=== PATIENT | female | born 1955 | race African-American/Black ===

== ENCOUNTER 2019-11-29 13:14 | Inpatient (IN) | payer MEDICARE, OTHER ==
[~2019-11-29] VITALS: Ht 165.1 cm; Wt 68.5 kg
[~2019-11-29 13:14] MED LIST: CEPH500 PO; CYCL10 PO; ESCI20TA PO; HYDR-3965 PO; HYDR12.530 PO; HYDR4TAB56 PO; INSLAN SQ; LISI-662 PO; LORA-999 PO; METO5TAB95 PO; MIRT15TA6 PO; OXCA300T29 PO; TRAM50TA4 PO
[2019-11-29] MEDS ORDERED: NiCARDipine HCL 25 MG in DEXTROSE 5%-WATER 240 ML IV PRN (13:19)
[2019-11-29 13:53] LABS: BASOPHILS % (AUTO) 0.6 % (0.0-2.0); EOSINOPHILS % (AUTO) 0 % (1.0-6.0); HEMATOCRIT 33.9 % (36-46); LYMPHOCYTES # (AUTO) 0.9 K/uL (1.0-4.8); LYMPHOCYTES % (AUTO) 11.1 % (22.0-44.0); MEAN CORPUSCULAR HEMOGLOBIN 25.9 pg (26.0-34.0); MEAN CORPUSCULAR HGB CONC 32.4 G/dL (31.0-37.0); MEAN CORPUSCULAR VOLUME 80 fL (80-100); MONOCYTES # (AUTO) 0.4 K/uL (0.1-1.0); MONOCYTES % (AUTO) 5.5 % (2.0-9.0); NEUTROPHILS # (AUTO) 6.7 K/uL (1.8-7.7); NEUTROPHILS % (AUTO) 82.8 % (40.0-70.0); PLATELET COUNT (AUTO) 289 K/uL (150-450); RED BLOOD CELL COUNT(AUTO) 4.24 MIL/uL (4.00-5.20); RED CELL DISTRIBUTION WIDTH 14.7 % (11.5-14.5)
[2019-11-29] MEDS ORDERED: ASPIRIN 300 MG RECTAL SUPPOSITORY PR ONE (14:00)
[2019-11-29 14:08] LABS: ANION GAP 14 mmol/L (8-16); CARBON DIOXIDE 26 mmol/L (22-29); CHLORIDE 98 mmol/L (98-107); CREATININE 1.09 mg/dL (0.60-1.30); GLOMERULAR FILTR. RATE CALC > 60 mL/min (>60); GLUCOSE,RANDOM 357 mg/dL (70-110); POTASSIUM 3.3 mmol/L (3.5-5.1); SODIUM SERUM 138 mmol/L (136-145); UREA NITROGEN, BLOOD 16 mg/dL (7-18)
[2019-11-29 14:15] LABS: ALANINE AMINOTRANSFERASE 40 U/L (12-78); ALBUMIN 2.5 g/dL (3.4-5.0); ALKALINE PHOSPHATASE 100 U/L (46-116); ASPARTATE AMINOTRANSFERASE 35 U/L (15-37); BILIRUBIN,TOTAL 0.8 mg/dL (0.1-1.0); TOTAL PROTEIN, SERUM 7.3 g/dL (6.4-8.2)
[2019-11-29 14:19] LABS: LACTIC ACID 2.1 mmol/L (0.4-2.0)
[2019-11-29] MEDS ORDERED: SODIUM CHLORIDE 0.9% 1,600 ML IV ONE (14:28)
[2019-11-29] MEDS ORDERED: CefTRIAXone 1 GM/DEXTROSE 50 ML IV ONE (14:30)
[2019-11-29] MEDS ORDERED: ACETAMINOPHEN 1000 MG/ISO-OSM 100 ML IV ONE (14:30)
[2019-11-29 14:57] LABS: ERYTHROCYTE SEDIMENTATION RATE 66 MM/HR (0-20)
[2019-11-29 15:12] LABS: GLUCOSE,POINT OF CARE 315 MG/DL (70-110)
[2019-11-29] MEDS ORDERED: MAGNESIUM HYDROXIDE SUSPENSION 30 ML UDCUP PO PRN (15:15)
[2019-11-29] MEDS ORDERED: POTASSIUM CHLORIDE 20 MEQ ER TABLET PO PRN (15:15)
[2019-11-29 15:29] LABS: APPEARANCE,URINE CLEAR (CLEAR); BILIRUBIN,URINE NEGATIVE (NEGATIVE); GLUCOSE, URINE (UA) >=1000 mg/dL (NEGATIVE); KETONES,URINE >=80 mg/dL (NEGATIVE); LEUKOCYTE ESTERASE ,URINE NEGATIVE (NEGATIVE); NITRATE,URINE NEGATIVE (NEGATIVE); OCCULT BLOOD,URINE MODERATE (NEGATIVE); PROTEIN,URINE SEE CONFIRM (NEGATIVE); UROBILINOGEN,URINE 0.2 mg/dL (<=1.0)
[2019-11-29] MEDS ORDERED: PIPERACILLIN/TAZO 3.375 GM/D5W 50 ML IV ONE (15:30)
[2019-11-29 15:33] LABS: AMPHET/METH SCREEN,URINE NEGATIVE (NEGATIVE); BARBITURATE SCREEN, URINE NEGATIVE (NEGATIVE); BENZODIAZEPINES SCREEN,URINE NEGATIVE (NEGATIVE); CANNABINOID SCREEN,URINE NEGATIVE (NEGATIVE); COCAINE SCREEN,URINE NEGATIVE (NEGATIVE); METHADONE SCREEN, URINE NEGATIVE (NEGATIVE); OPIATE SCREEN,URINE POSITIVE (NEGATIVE)
[2019-11-29 15:37] LABS: PHENCYCLIDINE SCREEN,URINE NEGATIVE (NEGATIVE); SULFOSALICYLIC ACID,URINE 4+ (Negative)
[2019-11-29 15:38] LABS: WBC,URINE 0-2 /HPF (0-5)
[2019-11-29 15:39] LABS: AMORPHOUS SEDIMENT,UR Few /LPF (None Seen); BACTERIA,URINE None Seen /HPF (None Seen); RENAL EPITHELIAL CELLS,URINE Rare /LPF (None Seen); SQUAMOUS EPITHELIAL CELL,UR Rare /LPF (None Seen)
[2019-11-29] MEDS ORDERED: VANCOMYCIN HCL 1 GM/D5% WATER 200 ML IV ONE (15:45)
[2019-11-29] MEDS: POTASSIUM CHL 10 MEQ/WATER 50 ML IV PRN ×5 (16:11→23:49)
[2019-11-29 16:34] LABS: GLUCOSE,POINT OF CARE 314 MG/DL (70-110)
[2019-11-29] MEDS ORDERED: LORazepam 2 MG/ML VIAL IVP ONE (17:00)
[2019-11-29 19:49] LABS: GLUCOSE,POINT OF CARE 324 MG/DL (70-110)
[2019-11-29] MEDS: ACETAMINOPHEN 650 MG RECTAL SUPPOSITORY PR PRN (20:15)
[2019-11-29] MEDS: INSULIN LISPRO 100 UNITS/ML SQ PRN (20:50)
[2019-11-29] MEDS: HEPARIN SODIUM,PORCINE 5,000 UNITS/ML VIAL SQ SCH (20:54)
[2019-11-29] MEDS: DOCUSATE SODIUM 100 MG CAPSULE PO SCH (21:00)
[2019-11-29 22:00] VITALS: BP 135/71
[2019-11-29] MEDS ORDERED: SODIUM CHLORIDE 0.9% 250 ML IV ONE (22:02)
[2019-11-30] VITALS (8 sets, daily range): BP systolic 106–181; BP diastolic 43–102
[2019-11-30] MEDS ORDERED: SODIUM CHLORIDE 0.9% 250 ML IV ONE ×2 (00:31→14:10)
[2019-11-30] MEDS: PIPERACILLIN/TAZO 3.375 GM/D5W 50 ML IV SCH ×4 (00:32→18:27)
[2019-11-30] MEDS: POTASSIUM CHL 10 MEQ/WATER 50 ML IV PRN ×6 (01:01→22:39)
[2019-11-30] MEDS ORDERED: PNEUMOCOCCAL VACCINE POLYVALENT 0.5 ML VIAL [PPSV23] IM ONE (01:30)
[2019-11-30] MEDS ORDERED: INFLUENZA VIRUS VACCINE QVS 2019-20 (3YR+)/PF 60 MCG/0.5 ML SYRINGE IM ONE (01:30)
[2019-11-30 05:12] LABS: CALCIUM, TOTAL 8.9 mg/dL (8.8-10.5); CREATININE 1.23 mg/dL (0.60-1.30); POTASSIUM 3.2 mmol/L (3.5-5.1)
[2019-11-30] MEDS: INSULIN LISPRO 100 UNITS/ML SQ PRN ×3 (05:49→21:01)
[2019-11-30] MEDS: VANCOMYCIN HCL 750 MG in DEXTROSE 5%-WATER 250 ML IV SCH ×2 (07:47→19:40)
[2019-11-30] MEDS: DOCUSATE SODIUM 100 MG CAPSULE PO SCH ×2 (08:10→21:00)
[2019-11-30] MEDS: FAMOTIDINE 20 MG TABLET PO SCH (08:13)
[2019-11-30] MEDS: HEPARIN SODIUM,PORCINE 5,000 UNITS/ML VIAL SQ SCH ×2 (08:14→20:59)
[2019-11-30] MEDS: HydrALAZINE HCL 20 MG/ML VIAL IVP PRN ×2 (11:43→21:00)
[2019-11-30 17:34] LABS: GLUCOSE,POINT OF CARE 239 MG/DL (70-110)
[2019-11-30] MEDS: INSULIN GLARGINE,HUM.REC.ANLOG 100 UNITS/ML SQ SCH (21:05)
[2019-11-30] MEDS: ACETAMINOPHEN 650 MG RECTAL SUPPOSITORY PR PRN (21:06)
[2019-11-30] MEDS: MORPHINE SULFATE 2 MG/ML SYRINGE IVP PRN (21:30)
[2019-11-30 21:58] LABS: GLUCOSE,POINT OF CARE 233 MG/DL (70-110)
[2019-12-01] VITALS: BP 149/69
[2019-12-01] MEDS: PIPERACILLIN/TAZO 3.375 GM/D5W 50 ML IV SCH ×2 (00:04→05:18)
[2019-12-01] MEDS: POTASSIUM CHL 10 MEQ/WATER 50 ML IV PRN ×3 (00:04→10:44)
[2019-12-01 04:00] VITALS: BP 138/72
[2019-12-01] MEDS: LORazepam 2 MG/ML VIAL IVP PRN (04:00)
[2019-12-01 05:24] LABS: CALCIUM, TOTAL 9.1 mg/dL (8.8-10.5); CREATININE 1.48 mg/dL (0.60-1.30); POTASSIUM 3.1 mmol/L (3.5-5.1); VANCOMYCIN,RANDOM 21.4 mcg/mL (25.0-50.0)
[2019-12-01] MEDS: VANCOMYCIN HCL 750 MG in DEXTROSE 5%-WATER 250 ML IV SCH (06:22)
[2019-12-01] MEDS: INSULIN LISPRO 100 UNITS/ML SQ PRN (06:22)
[2019-12-01 06:33] LABS: GLUCOSE,POINT OF CARE 215 MG/DL (70-110)
[2019-12-01] MEDS ORDERED: LORazepam 2 MG/ML VIAL IVP PRN (07:15)
[2019-12-01] MEDS ORDERED: SODIUM CHLORIDE 0.9% 1,000 ML IV ONE (07:15)
[2019-12-01] MEDS ORDERED: LevETIRAcetam 500 MG in DEXTROSE 5%-WATER 100 ML IV ONE ×2 (07:15→10:45)
[2019-12-01] MEDS ORDERED: POTASSIUM CHL 10 MEQ/WATER 50 ML IV SCH (07:15)
[2019-12-01 07:34] LABS: GLUCOSE,POINT OF CARE 235 MG/DL (70-110)
[2019-12-01] MEDS: FAMOTIDINE 20 MG TABLET PO SCH (09:00)
[2019-12-01] MEDS: LISINOPRIL 20 MG TABLET PO SCH (09:00)
[2019-12-01] MEDS: DOCUSATE SODIUM 100 MG CAPSULE PO SCH ×2 (09:00→20:17)
[2019-12-01] MEDS: HEPARIN SODIUM,PORCINE 5,000 UNITS/ML VIAL SQ SCH ×2 (09:00→20:16)
[2019-12-01] MEDS ORDERED: PHENYTOIN SODIUM 1,000 MG in SODIUM CHLORIDE 0.9% 150 ML IV PRN (12:00)
[2019-12-01] MEDS: PIPERACILLIN SODIUM/TAZOBACTAM 2.25 GM in DEXTROSE 5%-WATER 50 ML IV SCH ×2 (12:31→18:58)
[2019-12-01] MEDS ORDERED: NOREPINEPHRINE 4 MG/D5%-WATER 250 ML IV ONE (14:13)
[2019-12-01] MEDS ORDERED: NOREPINEPHRINE 4 MG/D5%-WATER 250 ML IV PRN (14:28)
[2019-12-01] MEDS: PROPOFOL 1000 MG/ISO-OSM 100 ML IV PRN (14:55)
[2019-12-01 15:51] LABS: GLUCOSE,POINT OF CARE 137 MG/DL (70-110)
[2019-12-01 16:00] VITALS: BP 105/66
[2019-12-01 17:40] LABS: ABG BASE EXCESS -5.5 mmol/L (-2.0-3.0); ABG CARBOXYHEMOGLOBIN 0.3 % (0.0-1.5); ABG HCO3 20.7 mmol/L (22.0-26.0); ABG METHEMOGLOBIN 0.3 % (0.0-1.5); ABG OXYGEN CONTENT 14.9 mL/dL (15.0-23.0); ABG OXYGEN SATURATION 99.3 % (95.0-98.0); ABG OXYHEMOGLOBIN 98.7 % (94.0-100.0); ABG PCO2 30 mmHg (35-45); ABG PH 7.423 (7.35-7.450); ABG TOTAL HEMOGLOBIN 9.7 G/dL (12.0-18.0); SOURCE, BLOOD GAS ARTERIAL; TEMPERATURE, FAHRENHEIT, BG 99.5 FAHREN (96.0-98.6)
[2019-12-01 17:41] LABS: O2 DEVICE,BLOOD GAS VENTILATOR (ROOM AIR); PEEP,BG 5 cm H2O; SITE, BLOOD GAS LFT RADIAL; VT, ABG 450 ml
[2019-12-01 18:14] LABS: CALCIUM, TOTAL 8.4 mg/dL (8.8-10.5); CREATININE 1.53 mg/dL (0.60-1.30); MAGNESIUM 1.9 mg/dL (1.80-2.40); PHOSPHORUS 2.8 mg/dL (2.5-4.9); POTASSIUM 3.3 mmol/L (3.5-5.1)
[2019-12-01] MEDS ORDERED: ATROPINE SULFATE 0.1 MG/ML 10 ML SYRINGE IVP ONE (18:20)
[2019-12-01] MEDS: LevETIRAcetam 1,000 MG in DEXTROSE 5%-WATER 100 ML IV SCH (18:59)
[2019-12-01 20:00] VITALS: BP 126/74
[2019-12-01] MEDS ORDERED: SODIUM CHLORIDE 0.9% 1,000 ML IV SCH (20:00)
[2019-12-01] MEDS: SODIUM CHLORIDE 0.45% 1,000 ML IV SCH (20:16)
[2019-12-01] MEDS: VANCOMYCIN HCL 500 MG in DEXTROSE 5%-WATER 100 ML IV SCH (20:16)
[2019-12-01 20:34] LABS: APPEARANCE,URINE TURBID (CLEAR); BILIRUBIN,URINE PRELIM. POSITIVE (NEGATIVE); GLUCOSE, URINE (UA) 250 mg/dL (NEGATIVE); KETONES,URINE TRACE mg/dL (NEGATIVE); LEUKOCYTE ESTERASE ,URINE NEGATIVE (NEGATIVE); NITRATE,URINE NEGATIVE (NEGATIVE); OCCULT BLOOD,URINE LARGE (NEGATIVE); PROTEIN,URINE SEE CONFIRM (NEGATIVE); UROBILINOGEN,URINE 0.2 mg/dL (<=1.0)
[2019-12-01 20:35] LABS: CREATININE,URINE RANDOM 250.4 mg/dL (30.0-125.0); SODIUM,URINE RANDOM 14 mmol/l (20-110); UREA NITROGEN,URINE RANDOM 506 mg/dL (350-1000)
[2019-12-01 20:49] LABS: SULFOSALICYLIC ACID,URINE 4+ (Negative)
[2019-12-01 20:51] LABS: WBC,URINE 0-2 /HPF (0-5)
[2019-12-01 20:52] LABS: BACTERIA,URINE Many /HPF (None Seen)
[2019-12-01 20:53] LABS: SQUAMOUS EPITHELIAL CELL,UR Few /LPF (None Seen); URIC ACID CRYSTALS,URINE Many /LPF (None Seen)
[2019-12-01 21:49] LABS: GLUCOSE,POINT OF CARE 126 MG/DL (70-110)
[2019-12-01 21:49] LABS: GLUCOSE,POINT OF CARE 182 MG/DL (70-110)
[2019-12-01] MEDS: INSULIN GLARGINE,HUM.REC.ANLOG 100 UNITS/ML SQ SCH (22:04)
[2019-12-02] VITALS: BP 111/70
[2019-12-02] MEDS: PIPERACILLIN SODIUM/TAZOBACTAM 2.25 GM in DEXTROSE 5%-WATER 50 ML IV SCH ×4 (00:45→17:35)
[2019-12-02 04:00] VITALS: BP 122/70
[2019-12-02] MEDS: PROPOFOL 1000 MG/ISO-OSM 100 ML IV PRN ×2 (04:01→17:38)
[2019-12-02] MEDS ORDERED: SODIUM CHLORIDE 0.9% 250 ML IV ONE (04:10)
[2019-12-02 04:21] LABS: GLUCOSE,POINT OF CARE 134 MG/DL (70-110)
[2019-12-02 05:46] LABS: BASOPHILS % (AUTO) 0.2 % (0.0-2.0); HEMATOCRIT 26.2 % (36-46); HEMOGLOBIN 8.7 g/dL (12.0-16.0); LYMPHOCYTES % (AUTO) 11.7 % (22.0-44.0); MEAN CORPUSCULAR HEMOGLOBIN 26.4 pg (26.0-34.0); MEAN CORPUSCULAR HGB CONC 33.3 G/dL (31.0-37.0); MEAN CORPUSCULAR VOLUME 79 fL (80-100); MONOCYTES # (AUTO) 0.6 K/uL (0.1-1.0); MONOCYTES % (AUTO) 6.9 % (2.0-9.0); NEUTROPHILS # (AUTO) 7.1 K/uL (1.8-7.7); NEUTROPHILS % (AUTO) 80.2 % (40.0-70.0); PLATELET COUNT (AUTO) 201 K/uL (150-450); RED BLOOD CELL COUNT(AUTO) 3.31 MIL/uL (4.00-5.20); RED CELL DISTRIBUTION WIDTH 14.4 % (11.5-14.5)
[2019-12-02 06:22] LABS: CALCIUM, TOTAL 8.3 mg/dL (8.8-10.5); CREATININE 1.51 mg/dL (0.60-1.30); PHOSPHORUS 3.2 mg/dL (2.5-4.9); POTASSIUM 3.4 mmol/L (3.5-5.1); THYROID STIMULATING HORMONE 1.73 uIU/mL (0.36-3.74)
[2019-12-02 06:35] LABS: GLUCOSE,POINT OF CARE 116 MG/DL (70-110)
[2019-12-02] MEDS: VANCOMYCIN HCL 500 MG in DEXTROSE 5%-WATER 100 ML IV SCH ×2 (06:35→21:06)
[2019-12-02] MEDS: LevETIRAcetam 1,000 MG in DEXTROSE 5%-WATER 100 ML IV SCH ×2 (06:36→19:50)
[2019-12-02] MEDS: SODIUM CHLORIDE 0.45% 1,000 ML IV SCH ×2 (06:36→17:35)
[2019-12-02 08:00] VITALS: BP 129/74
[2019-12-02] MEDS: DOCUSATE SODIUM 100 MG CAPSULE PO SCH ×2 (09:00→21:00)
[2019-12-02] MEDS: FAMOTIDINE 20 MG TABLET PO SCH (09:00)
[2019-12-02] MEDS: LISINOPRIL 20 MG TABLET PO SCH (09:00)
[2019-12-02] MEDS: HEPARIN SODIUM,PORCINE 5,000 UNITS/ML VIAL SQ SCH ×2 (09:40→21:04)
[2019-12-02 10:55] LABS: ABG BASE EXCESS -5.1 mmol/L (-2.0-3.0); ABG CARBOXYHEMOGLOBIN 0.5 % (0.0-1.5); ABG HCO3 20.9 mmol/L (22.0-26.0); ABG METHEMOGLOBIN 0.3 % (0.0-1.5); ABG OXYGEN CONTENT 13.2 mL/dL (15.0-23.0); ABG OXYHEMOGLOBIN 98.2 % (94.0-100.0); ABG PCO2 29 mmHg (35-45); ABG PH 7.436 (7.35-7.450); ABG TOTAL HEMOGLOBIN 9.3 G/dL (12.0-18.0); PO2, ARTERIAL BG 148.7 mmHg (79.0-87.0); SOURCE, BLOOD GAS ARTERIAL; TEMPERATURE, FAHRENHEIT, BG 96.6 FAHREN (96.0-98.6)
[2019-12-02 11:00] LABS: O2 DEVICE,BLOOD GAS VENTILATOR (ROOM AIR); SITE, BLOOD GAS RT RADIAL; VT, ABG 400 ml
[2019-12-02 11:01] LABS: PEEP,BG 5 cm H2O
[2019-12-02 12:00] VITALS: BP 128/69
[2019-12-02 13:38] LABS: GLUCOSE,POINT OF CARE 79 MG/DL (70-110)
[2019-12-02 16:00] VITALS: BP 129/74
[2019-12-02] MEDS: DEXTROSE 50%-WATER 25 GM/50 ML SYRINGE IVP PRN (18:27)
[2019-12-02 20:00] VITALS: BP 142/93
[2019-12-02] MEDS: INSULIN GLARGINE,HUM.REC.ANLOG 100 UNITS/ML SQ SCH (21:00)
[2019-12-03] VITALS: BP 127/67
[2019-12-03] MEDS: PIPERACILLIN SODIUM/TAZOBACTAM 2.25 GM in DEXTROSE 5%-WATER 50 ML IV SCH ×4 (00:35→18:27)
[2019-12-03 04:00] VITALS: BP 140/79
[2019-12-03] MEDS: PROPOFOL 1000 MG/ISO-OSM 100 ML IV PRN ×3 (04:03→19:52)
[2019-12-03] MEDS: SODIUM CHLORIDE 0.45% 1,000 ML IV SCH ×3 (04:03→21:38)
[2019-12-03 06:10] LABS: CREATININE 1.41 mg/dL (0.60-1.30); PHOSPHORUS 2.8 mg/dL (2.5-4.9)
[2019-12-03] MEDS: LevETIRAcetam 1,000 MG in DEXTROSE 5%-WATER 100 ML IV SCH ×2 (06:12→19:39)
[2019-12-03 06:13] LABS: POTASSIUM 2.6 mmol/L (3.5-5.1)
[2019-12-03] MEDS ORDERED: POTASSIUM CHLORIDE 10% 40 MEQ/30 ML LIQUID UDCUP NG ONE ×2 (06:30→16:00)
[2019-12-03 06:46] LABS: GLUCOSE,POINT OF CARE 114 MG/DL (70-110)
[2019-12-03 06:46] LABS: GLUCOSE,POINT OF CARE 176 MG/DL (70-110)
[2019-12-03 06:46] LABS: GLUCOSE,POINT OF CARE 45 MG/DL (70-110)
[2019-12-03] MEDS: VANCOMYCIN HCL 500 MG in DEXTROSE 5%-WATER 100 ML IV SCH ×2 (07:36→19:39)
[2019-12-03 08:00] VITALS: BP 122/77
[2019-12-03] MEDS: DOCUSATE SODIUM 100 MG CAPSULE PO SCH ×2 (08:29→21:00)
[2019-12-03] MEDS: FAMOTIDINE 20 MG TABLET PO SCH (09:01)
[2019-12-03] MEDS: HEPARIN SODIUM,PORCINE 5,000 UNITS/ML VIAL SQ SCH ×2 (09:01→21:33)
[2019-12-03 12:00] VITALS: BP 133/77
[2019-12-03 12:42] LABS: ABG A-A DIFF O2 76.6 mmHg (10-20.0); ABG BASE EXCESS -6.1 mmol/L (-2.0-3.0); ABG CARBOXYHEMOGLOBIN 0.3 % (0.0-1.5); ABG HCO3 20.2 mmol/L (22.0-26.0); ABG METHEMOGLOBIN 0.3 % (0.0-1.5); ABG OXYGEN SATURATION 98.7 % (95.0-98.0); ABG OXYHEMOGLOBIN 98.1 % (94.0-100.0); SOURCE, BLOOD GAS ARTERIAL; TEMPERATURE, FAHRENHEIT, BG 98.1 FAHREN (96.0-98.6)
[2019-12-03 12:45] LABS: ABG PCO2 29 mmHg (35-45); ABG PH 7.424 (7.35-7.450); SITE, BLOOD GAS RT RADIAL
[2019-12-03 12:46] LABS: ABG OXYGEN CONTENT 13.7 mL/dL (15.0-23.0); ABG TOTAL HEMOGLOBIN 9.7 G/dL (12.0-18.0); O2 DEVICE,BLOOD GAS VENTILATOR (ROOM AIR); PEEP,BG 5 cm H2O; VT, ABG 450 ml
[2019-12-03] MEDS: INSULIN LISPRO 100 UNITS/ML SQ PRN (13:02)
[2019-12-03 15:29] LABS: CALCIUM, TOTAL 7.8 mg/dL (8.8-10.5); CREATININE 1.29 mg/dL (0.60-1.30)
[2019-12-03 16:00] VITALS: BP 127/81
[2019-12-03 16:31] LABS: GLUCOSE,POINT OF CARE 141 MG/DL (70-110)
[2019-12-03 20:00] VITALS: BP 151/85
[2019-12-03] MEDS: INSULIN GLARGINE,HUM.REC.ANLOG 100 UNITS/ML SQ SCH (21:36)
[2019-12-04] VITALS: BP 122/74
[2019-12-04] MEDS: PIPERACILLIN SODIUM/TAZOBACTAM 2.25 GM in DEXTROSE 5%-WATER 50 ML IV SCH ×4 (00:32→18:16)
[2019-12-04] MEDS: INSULIN LISPRO 100 UNITS/ML SQ PRN (00:34)
[2019-12-04 02:00] VITALS: BP 122/74
[2019-12-04] MEDS: PROPOFOL 1000 MG/ISO-OSM 100 ML IV PRN ×4 (02:06→19:14)
[2019-12-04 03:27] LABS: GLUCOSE,POINT OF CARE 121 MG/DL (70-110)
[2019-12-04 03:27] LABS: GLUCOSE,POINT OF CARE 182 MG/DL (70-110)
[2019-12-04 03:27] LABS: GLUCOSE,POINT OF CARE 154 MG/DL (70-110)
[2019-12-04 04:00] VITALS: BP 146/84
[2019-12-04 06:11] LABS: CALCIUM, TOTAL 8.3 mg/dL (8.8-10.5); CREATININE 1.34 mg/dL (0.60-1.30); POTASSIUM 3.4 mmol/L (3.5-5.1); VANCOMYCIN,RANDOM 24.2 mcg/mL (25.0-50.0)
[2019-12-04] MEDS ORDERED: SODIUM CHLORIDE 0.9% 250 ML IV ONE (06:31)
[2019-12-04] MEDS: LevETIRAcetam 1,000 MG in DEXTROSE 5%-WATER 100 ML IV SCH ×2 (06:33→19:15)
[2019-12-04] MEDS: VANCOMYCIN HCL 500 MG in DEXTROSE 5%-WATER 100 ML IV SCH (06:34)
[2019-12-04 06:56] LABS: GLUCOSE,POINT OF CARE 112 MG/DL (70-110)
[2019-12-04 08:00] VITALS: BP 153/85
[2019-12-04] MEDS: FAMOTIDINE 20 MG TABLET PO SCH (08:37)
[2019-12-04] MEDS: HEPARIN SODIUM,PORCINE 5,000 UNITS/ML VIAL SQ SCH ×2 (08:37→20:36)
[2019-12-04] MEDS: SODIUM CHLORIDE 0.45% 1,000 ML IV SCH (08:37)
[2019-12-04] MEDS: DOCUSATE SODIUM 100 MG CAPSULE PO SCH ×2 (08:38→20:36)
[2019-12-04] MEDS: LORazepam 2 MG/ML VIAL IVP PRN (09:07)
[2019-12-04 10:09] LABS: ABG A-A DIFF O2 68.2 mmHg (10-20.0); ABG BASE EXCESS -7.9 mmol/L (-2.0-3.0); ABG CARBOXYHEMOGLOBIN 0.3 % (0.0-1.5); ABG HCO3 18.7 mmol/L (22.0-26.0); ABG METHEMOGLOBIN 0.3 % (0.0-1.5); ABG OXYGEN SATURATION 98.7 % (95.0-98.0); ABG OXYHEMOGLOBIN 98.1 % (94.0-100.0); SOURCE, BLOOD GAS ARTERIAL; TEMPERATURE, FAHRENHEIT, BG 97.4 FAHREN (96.0-98.6)
[2019-12-04 10:10] LABS: ABG OXYGEN CONTENT 13.4 mL/dL (15.0-23.0); ABG PCO2 31 mmHg (35-45); ABG PH 7.365 (7.35-7.450); ABG TOTAL HEMOGLOBIN 9.5 G/dL (12.0-18.0); O2 DEVICE,BLOOD GAS VENTILATOR (ROOM AIR); PO2, ARTERIAL BG 150.8 mmHg (79.0-87.0); SITE, BLOOD GAS RT RADIAL; VT, ABG 450 ml
[2019-12-04 10:11] LABS: PEEP,BG 5 cm H2O; SPONTANEOUS VT, BG 518 ml
[2019-12-04] MEDS ORDERED: SODIUM CHLORIDE 0.45% 1,000 ML IV SCH (11:30)
[2019-12-04 13:00] LABS: BASOPHILS % (AUTO) 0.5 % (0.0-2.0); EOSINOPHILS % (AUTO) 3.6 % (1.0-6.0); HEMATOCRIT 29.4 % (36-46); HEMOGLOBIN 9.6 g/dL (12.0-16.0); LYMPHOCYTES # (AUTO) 0.9 K/uL (1.0-4.8); LYMPHOCYTES % (AUTO) 16.8 % (22.0-44.0); MEAN CORPUSCULAR HEMOGLOBIN 26.2 pg (26.0-34.0); MEAN CORPUSCULAR HGB CONC 32.7 G/dL (31.0-37.0); MEAN CORPUSCULAR VOLUME 80 fL (80-100); MONOCYTES # (AUTO) 0.6 K/uL (0.1-1.0); MONOCYTES % (AUTO) 11.2 % (2.0-9.0); NEUTROPHILS # (AUTO) 3.7 K/uL (1.8-7.7); NEUTROPHILS % (AUTO) 67.9 % (40.0-70.0); PLATELET COUNT (AUTO) 226 K/uL (150-450); RED BLOOD CELL COUNT(AUTO) 3.66 MIL/uL (4.00-5.20); RED CELL DISTRIBUTION WIDTH 15.1 % (11.5-14.5)
[2019-12-04 13:07] LABS: ANION GAP 10 mmol/L (8-16); CALCIUM, TOTAL 8.2 mg/dL (8.8-10.5); CARBON DIOXIDE 19 mmol/L (22-29); CHLORIDE 113 mmol/L (98-107); CREATININE 1.09 mg/dL (0.60-1.30); GLOMERULAR FILTR. RATE CALC > 60 mL/min (>60); GLUCOSE,RANDOM 202 mg/dL (70-110); POTASSIUM 3.3 mmol/L (3.5-5.1); SODIUM SERUM 142 mmol/L (136-145); UREA NITROGEN, BLOOD 18 mg/dL (7-18)
[2019-12-04 16:00] VITALS: BP 149/86
[2019-12-04 18:27] LABS: GLUCOSE,POINT OF CARE 139 MG/DL (70-110)
[2019-12-04 20:00] VITALS: BP 134/76
[2019-12-04] MEDS: INSULIN GLARGINE,HUM.REC.ANLOG 100 UNITS/ML SQ SCH (20:37)
[2019-12-04 22:22] LABS: GLUCOSE,POINT OF CARE 132 MG/DL (70-110)
[2019-12-05] VITALS: BP 126/77
[2019-12-05] MEDS: PROPOFOL 1000 MG/ISO-OSM 100 ML IV PRN ×3 (00:56→11:14)
[2019-12-05] MEDS: PIPERACILLIN SODIUM/TAZOBACTAM 2.25 GM in DEXTROSE 5%-WATER 50 ML IV SCH ×2 (00:56→06:03)
[2019-12-05] MEDS: SODIUM CHLORIDE 0.45% 1,000 ML IV SCH (00:57)
[2019-12-05 04:00] VITALS: BP 130/75
[2019-12-05 05:18] LABS: CREATININE 1.23 mg/dL (0.60-1.30); POTASSIUM 3.3 mmol/L (3.5-5.1)
[2019-12-05 05:19] LABS: CALCIUM, TOTAL 8.5 mg/dL (8.8-10.5)
[2019-12-05] MEDS: DEXTROSE 50%-WATER 25 GM/50 ML SYRINGE IVP PRN ×2 (06:04→18:47)
[2019-12-05] MEDS ORDERED: SODIUM CHLORIDE 0.9% 250 ML IV ONE ×2 (06:15→10:13)
[2019-12-05] MEDS: LevETIRAcetam 1,000 MG in DEXTROSE 5%-WATER 100 ML IV SCH ×2 (07:02→19:58)
[2019-12-05 07:03] LABS: GLUCOSE,POINT OF CARE 147 MG/DL (70-110)
[2019-12-05 07:03] LABS: GLUCOSE,POINT OF CARE 67 MG/DL (70-110)
[2019-12-05 07:03] LABS: GLUCOSE,POINT OF CARE 113 MG/DL (70-110)
[2019-12-05 07:11] LABS: GLUCOSE,POINT OF CARE 116 MG/DL (70-110)
[2019-12-05 08:00] VITALS: BP 131/73
[2019-12-05] MEDS: FAMOTIDINE 20 MG TABLET PO SCH (08:44)
[2019-12-05] MEDS: DOCUSATE SODIUM 100 MG CAPSULE PO SCH ×2 (08:44→21:00)
[2019-12-05] MEDS: VANCOMYCIN HCL 1 GM/D5% WATER 200 ML IV SCH (08:44)
[2019-12-05] MEDS: HEPARIN SODIUM,PORCINE 5,000 UNITS/ML VIAL SQ SCH ×2 (08:44→21:22)
[2019-12-05] MEDS: POTASSIUM CHL 10 MEQ/WATER 50 ML IV SCH ×2 (09:30→12:47)
[2019-12-05 12:00] VITALS: BP 155/83
[2019-12-05 12:35] LABS: GLUCOSE,POINT OF CARE 111 MG/DL (70-110)
[2019-12-05] MEDS: PIPERACILLIN/TAZO 3.375 GM/D5W 50 ML IV SCH ×3 (12:46→23:10)
[2019-12-05 16:00] VITALS: BP 162/86
[2019-12-05 17:34] LABS: ABG METHEMOGLOBIN 0.3 % (0.0-1.5); SOURCE, BLOOD GAS ARTERIAL
[2019-12-05 17:37] LABS: ABG A-A DIFF O2 123.9 mmHg (10-20.0); ABG BASE EXCESS -6.3 mmol/L (-2.0-3.0); ABG CARBOXYHEMOGLOBIN 0.1 % (0.0-1.5); ABG OXYGEN SATURATION 97.1 % (95.0-98.0); ABG OXYHEMOGLOBIN 96.7 % (94.0-100.0)
[2019-12-05 18:00] LABS: SITE, BLOOD GAS LFT RADIAL
[2019-12-05 18:01] LABS: ABG PCO2 31 mmHg (35-45); ABG PH 7.394 (7.35-7.450); ABG TOTAL HEMOGLOBIN 10.5 G/dL (12.0-18.0); PO2, ARTERIAL BG 95.3 mmHg (79.0-87.0)
[2019-12-05 18:02] LABS: ABG OXYGEN CONTENT 14.4 mL/dL (15.0-23.0); O2 DEVICE,BLOOD GAS VENTILATOR (ROOM AIR); VENT MODE, BG CPAP (ROOM AIR); VT, ABG 325 ml
[2019-12-05 18:03] LABS: PEEP,BG 0 cm H2O; PRESSURE SUPPORT, BG 8 cm H2O; SPONTANEOUS VT, BG 325 ml
[2019-12-05] MEDS: LORazepam 2 MG/ML VIAL IVP PRN (19:58)
[2019-12-05 20:00] VITALS: BP 161/82
[2019-12-05] MEDS: INSULIN GLARGINE,HUM.REC.ANLOG 100 UNITS/ML SQ SCH (21:00)
[2019-12-05 21:32] LABS: GLUCOSE,POINT OF CARE 96 MG/DL (70-110)
[2019-12-05 21:33] LABS: GLUCOSE,POINT OF CARE 43 MG/DL (70-110)
[2019-12-05] MEDS ORDERED: SODIUM CHLORIDE 0.9% 0 ML ONE (23:07)
[2019-12-05] MEDS ORDERED: SODIUM CHLORIDE 0.9% 100 ML ONE (23:08)
[2019-12-05] MEDS: HydrALAZINE HCL 20 MG/ML VIAL IVP PRN (23:10)
[2019-12-06] VITALS: BP 94/47
[2019-12-06] MEDS: LORazepam 2 MG/ML VIAL IVP PRN ×2 (02:10→11:20)
[2019-12-06 04:00] VITALS: BP 124/68
[2019-12-06 04:54] LABS: GLUCOSE,POINT OF CARE 72 MG/DL (70-110)
[2019-12-06 05:17] LABS: CALCIUM, TOTAL 8.5 mg/dL (8.8-10.5); CREATININE 1.22 mg/dL (0.60-1.30); MAGNESIUM 2.3 mg/dL (1.80-2.40); POTASSIUM 3.7 mmol/L (3.5-5.1)
[2019-12-06] MEDS: PIPERACILLIN/TAZO 3.375 GM/D5W 50 ML IV SCH ×4 (05:32→23:47)
[2019-12-06] MEDS: LevETIRAcetam 1,000 MG in DEXTROSE 5%-WATER 100 ML IV SCH ×2 (06:15→19:24)
[2019-12-06] MEDS: VANCOMYCIN HCL 1 GM/D5% WATER 200 ML IV SCH (07:00)
[2019-12-06 08:00] VITALS: BP 126/72
[2019-12-06] MEDS: HEPARIN SODIUM,PORCINE 5,000 UNITS/ML VIAL SQ SCH ×2 (08:11→22:00)
[2019-12-06 08:17] LABS: GLUCOSE,POINT OF CARE 114 MG/DL (70-110)
[2019-12-06] MEDS: DOCUSATE SODIUM 100 MG CAPSULE PO SCH ×2 (08:28→21:00)
[2019-12-06] MEDS: FAMOTIDINE 20 MG TABLET PO SCH (08:28)
[2019-12-06] MEDS: DEXTROSE 5%-WATER 1,000 ML IV SCH (09:48)
[2019-12-06 12:00] VITALS: BP 120/71
[2019-12-06 15:28] LABS: GLUCOSE,POINT OF CARE 152 MG/DL (70-110)
[2019-12-06 16:00] VITALS: BP 127/78
[2019-12-06 20:00] VITALS: BP 126/94
[2019-12-06 20:01] LABS: GLUCOSE,POINT OF CARE 152 MG/DL (70-110)
[2019-12-06] MEDS: INSULIN GLARGINE,HUM.REC.ANLOG 100 UNITS/ML SQ SCH (21:00)
[2019-12-06] MEDS: MORPHINE SULFATE 2 MG/ML SYRINGE IVP PRN (22:00)
[2019-12-06] MEDS ORDERED: SODIUM CHLORIDE 0.9% 1,000 ML ONE (22:31)
[2019-12-07 00:52] VITALS: BP 112/71
[2019-12-07 03:25] LABS: GLUCOMETER DEV NAME(LOC) 5N.2; GLUCOSE,POINT OF CARE 162 MG/DL (70-110)
[2019-12-07 05:21] VITALS: BP 119/81
[2019-12-07] MEDS: PIPERACILLIN/TAZO 3.375 GM/D5W 50 ML IV SCH ×3 (06:00→17:19)
[2019-12-07] MEDS: LevETIRAcetam 1,000 MG in DEXTROSE 5%-WATER 100 ML IV SCH ×2 (06:57→19:20)
[2019-12-07 07:01] LABS: CREATININE 1.31 mg/dL (0.60-1.30); MAGNESIUM 2.2 mg/dL (1.80-2.40); PHOSPHORUS 3.4 mg/dL (2.5-4.9); POTASSIUM 3.4 mmol/L (3.5-5.1)
[2019-12-07 07:58] VITALS: BP 120/54
[2019-12-07] MEDS ORDERED: POTASSIUM CHLORIDE 20 MEQ ER TABLET PO ONE ×2 (08:15→15:15)
[2019-12-07] MEDS: VANCOMYCIN HCL 1 GM/D5% WATER 200 ML IV SCH (08:40)
[2019-12-07] MEDS: FAMOTIDINE 20 MG TABLET PO SCH (08:52)
[2019-12-07] MEDS: DOCUSATE SODIUM 100 MG CAPSULE PO SCH ×2 (08:52→21:00)
[2019-12-07] MEDS: HEPARIN SODIUM,PORCINE 5,000 UNITS/ML VIAL SQ SCH ×2 (08:57→20:59)
[2019-12-07] MEDS: MORPHINE SULFATE 2 MG/ML SYRINGE IVP PRN ×2 (09:41→20:59)
[2019-12-07 11:40] VITALS: BP 137/71
[2019-12-07 12:16] LABS: GLUCOMETER DEV NAME(LOC) 5N.1; GLUCOSE,POINT OF CARE 212 MG/DL (70-110)
[2019-12-07 16:19] LABS: CREATININE,URINE RANDOM 91.8 mg/dL (30.0-125.0)
[2019-12-07 16:30] VITALS: BP 134/81
[2019-12-07] MEDS: ACETAMINOPHEN 325 MG TABLET PO PRN (17:28)
[2019-12-07] MEDS: INSULIN LISPRO 100 UNITS/ML SQ PRN (17:33)
[2019-12-07 17:52] LABS: GLUCOMETER DEV NAME(LOC) 5N.1; GLUCOSE,POINT OF CARE 273 MG/DL (70-110)
[2019-12-07 18:43] LABS: GLUCOMETER DEV NAME(LOC) 5S.1; GLUCOSE,POINT OF CARE 274 MG/DL (70-110)
[2019-12-07 20:26] VITALS: BP 117/68
[2019-12-07] MEDS: INSULIN GLARGINE,HUM.REC.ANLOG 100 UNITS/ML SQ SCH (21:13)
[2019-12-07] MEDS: DEXTROSE 5%-WATER 1,000 ML IV SCH (21:43)
[2019-12-08 00:03] VITALS: BP 126/72
[2019-12-08] MEDS: PIPERACILLIN/TAZO 3.375 GM/D5W 50 ML IV SCH ×3 (00:06→12:48)
[2019-12-08 01:02] LABS: GLUCOMETER DEV NAME(LOC) 5S.2A; GLUCOSE,POINT OF CARE 278 MG/DL (70-110)
[2019-12-08 04:20] VITALS: BP 141/79
[2019-12-08] MEDS: MORPHINE SULFATE 2 MG/ML SYRINGE IVP PRN ×4 (04:20→23:57)
[2019-12-08] MEDS: INSULIN LISPRO 100 UNITS/ML SQ PRN ×3 (06:09→18:16)
[2019-12-08 06:41] LABS: GLUCOMETER DEV NAME(LOC) 5N.2; GLUCOSE,POINT OF CARE 163 MG/DL (70-110)
[2019-12-08 06:42] LABS: GLUCOMETER DEV NAME(LOC) 5N.2; GLUCOSE,POINT OF CARE 312 MG/DL (70-110)
[2019-12-08] MEDS: LevETIRAcetam 1,000 MG in DEXTROSE 5%-WATER 100 ML IV SCH ×2 (06:43→19:09)
[2019-12-08 06:56] LABS: BASOPHILS % (AUTO) 0.8 % (0.0-2.0); EOSINOPHILS % (AUTO) 5.1 % (1.0-6.0); HEMATOCRIT 28.8 % (36-46); HEMOGLOBIN 9.4 g/dL (12.0-16.0); LYMPHOCYTES % (AUTO) 21.9 % (22.0-44.0); MEAN CORPUSCULAR HEMOGLOBIN 26.3 pg (26.0-34.0); MEAN CORPUSCULAR HGB CONC 32.8 G/dL (31.0-37.0); MEAN CORPUSCULAR VOLUME 80 fL (80-100); MONOCYTES # (AUTO) 0.8 K/uL (0.1-1.0); MONOCYTES % (AUTO) 17.4 % (2.0-9.0); NEUTROPHILS # (AUTO) 2.6 K/uL (1.8-7.7); NEUTROPHILS % (AUTO) 54.8 % (40.0-70.0); PLATELET COUNT (AUTO) 320 K/uL (150-450); RED BLOOD CELL COUNT(AUTO) 3.58 MIL/uL (4.00-5.20); RED CELL DISTRIBUTION WIDTH 15.2 % (11.5-14.5)
[2019-12-08 07:33] LABS: ALBUMIN 1.3 g/dL (3.4-5.0); BILIRUBIN,TOTAL 0.1 mg/dL (0.1-1.0); CALCIUM, TOTAL 8.4 mg/dL (8.8-10.5); CREATININE 1.53 mg/dL (0.60-1.30); PHOSPHORUS 2.8 mg/dL (2.5-4.9); POTASSIUM 3.9 mmol/L (3.5-5.1); TOTAL PROTEIN, SERUM 5.8 g/dL (6.4-8.2); VANCOMYCIN,RANDOM 24.9 mcg/mL (25.0-50.0)
[2019-12-08 08:15] VITALS: BP 142/88
[2019-12-08] MEDS: DOCUSATE SODIUM 100 MG CAPSULE PO SCH ×2 (09:00→20:35)
[2019-12-08] MEDS: FAMOTIDINE 20 MG TABLET PO SCH (09:00)
[2019-12-08] MEDS: HEPARIN SODIUM,PORCINE 5,000 UNITS/ML VIAL SQ SCH ×2 (09:02→20:35)
[2019-12-08 11:28] VITALS: BP 155/91
[2019-12-08 16:00] VITALS: BP 156/88
[2019-12-08] MEDS: CefTRIAXone SODIUM 2 GM in DEXTROSE 5%-WATER 50 ML IV SCH (18:18)
[2019-12-08 20:13] VITALS: BP 164/102
[2019-12-08] MEDS: ACETAMINOPHEN 325 MG TABLET PO PRN (20:35)
[2019-12-08] MEDS: HydrALAZINE HCL 20 MG/ML VIAL IVP PRN (20:42)
[2019-12-08] MEDS: INSULIN GLARGINE,HUM.REC.ANLOG 100 UNITS/ML SQ SCH (20:42)
[2019-12-08 21:36] LABS: GLUCOMETER DEV NAME(LOC) 5S.2A; GLUCOSE,POINT OF CARE 181 MG/DL (70-110)
[2019-12-09] VITALS (7 sets, daily range): BP systolic 130–175; BP diastolic 75–92
[2019-12-09 02:53] LABS: GLUCOMETER DEV NAME(LOC) 5N.2; GLUCOSE,POINT OF CARE 205 MG/DL (70-110)
[2019-12-09 02:53] LABS: GLUCOMETER DEV NAME(LOC) 5N.2; GLUCOSE,POINT OF CARE 211 MG/DL (70-110)
[2019-12-09] MEDS: CefTRIAXone SODIUM 2 GM in DEXTROSE 5%-WATER 50 ML IV SCH ×2 (06:10→18:24)
[2019-12-09 06:22] LABS: BASOPHILS % (AUTO) 0.5 % (0.0-2.0); EOSINOPHILS % (AUTO) 3.6 % (1.0-6.0); HEMATOCRIT 26.6 % (36-46); HEMOGLOBIN 8.9 g/dL (12.0-16.0); HEMOGLOBIN A1C 14.8 % (4.5-6.2); LYMPHOCYTES # (AUTO) 1.1 K/uL (1.0-4.8); LYMPHOCYTES % (AUTO) 18.7 % (22.0-44.0); MEAN CORPUSCULAR HEMOGLOBIN 26.4 pg (26.0-34.0); MEAN CORPUSCULAR HGB CONC 33.4 G/dL (31.0-37.0); MEAN CORPUSCULAR VOLUME 79 fL (80-100); MONOCYTES # (AUTO) 1.1 K/uL (0.1-1.0); MONOCYTES % (AUTO) 18.8 % (2.0-9.0); NEUTROPHILS # (AUTO) 3.5 K/uL (1.8-7.7); NEUTROPHILS % (AUTO) 58.4 % (40.0-70.0); PLATELET COUNT (AUTO) 325 K/uL (150-450); RED BLOOD CELL COUNT(AUTO) 3.36 MIL/uL (4.00-5.20); RED CELL DISTRIBUTION WIDTH 15.1 % (11.5-14.5)
[2019-12-09 06:55] LABS: CALCIUM, TOTAL 8.6 mg/dL (8.8-10.5); CREATININE 1.36 mg/dL (0.60-1.30); MAGNESIUM 2.1 mg/dL (1.80-2.40); PHOSPHORUS 2.7 mg/dL (2.5-4.9); POTASSIUM 3.4 mmol/L (3.5-5.1)
[2019-12-09] MEDS: LevETIRAcetam 1,000 MG in DEXTROSE 5%-WATER 100 ML IV SCH ×2 (07:42→19:36)
[2019-12-09 07:50] LABS: GLUCOMETER DEV NAME(LOC) 5N.2; GLUCOSE,POINT OF CARE 78 MG/DL (70-110)
[2019-12-09 07:50] LABS: GLUCOMETER DEV NAME(LOC) 5N.2; GLUCOSE,POINT OF CARE 63 MG/DL (70-110)
[2019-12-09] MEDS: DOCUSATE SODIUM 100 MG CAPSULE PO SCH ×2 (08:23→20:07)
[2019-12-09] MEDS: HEPARIN SODIUM,PORCINE 5,000 UNITS/ML VIAL SQ SCH ×2 (08:23→20:08)
[2019-12-09] MEDS: VANCOMYCIN HCL 500 MG in DEXTROSE 5%-WATER 100 ML IV SCH (08:23)
[2019-12-09] MEDS: FAMOTIDINE 20 MG TABLET PO SCH (08:23)
[2019-12-09] MEDS: MORPHINE SULFATE 2 MG/ML SYRINGE IVP PRN ×2 (08:31→18:33)
[2019-12-09] MEDS ORDERED: POTASSIUM CHLORIDE 20 MEQ ER TABLET PO ONE (10:45)
[2019-12-09] MEDS: INSULIN LISPRO 100 UNITS/ML SQ PRN ×2 (11:17→20:30)
[2019-12-09 13:03] LABS: GLUCOMETER DEV NAME(LOC) 5N.2; GLUCOSE,POINT OF CARE 165 MG/DL (70-110)
[2019-12-09] MEDS ORDERED: MORPHINE SULFATE 2 MG/ML SYRINGE IVP ONE (14:00)
[2019-12-09 19:32] LABS: GLUCOMETER DEV NAME(LOC) 5N.2; GLUCOSE,POINT OF CARE 117 MG/DL (70-110)
[2019-12-09] MEDS: INSULIN GLARGINE,HUM.REC.ANLOG 100 UNITS/ML SQ SCH (20:29)
[2019-12-09] MEDS: ACETAMINOPHEN 325 MG TABLET PO PRN (20:46)
[2019-12-10 03:40] VITALS: BP 149/79
[2019-12-10 05:01] LABS: GLUCOMETER DEV NAME(LOC) 5N.2; GLUCOSE,POINT OF CARE 226 MG/DL (70-110)
[2019-12-10] MEDS: CefTRIAXone SODIUM 2 GM in DEXTROSE 5%-WATER 50 ML IV SCH ×2 (05:31→18:09)
[2019-12-10] MEDS: MORPHINE SULFATE 2 MG/ML SYRINGE IVP PRN ×3 (06:06→22:23)
[2019-12-10] MEDS: LevETIRAcetam 1,000 MG in DEXTROSE 5%-WATER 100 ML IV SCH ×2 (06:14→19:04)
[2019-12-10 08:10] VITALS: BP 155/89
[2019-12-10] MEDS: FAMOTIDINE 20 MG TABLET PO SCH (08:26)
[2019-12-10] MEDS: DOCUSATE SODIUM 100 MG CAPSULE PO SCH ×2 (08:26→20:30)
[2019-12-10] MEDS: VANCOMYCIN HCL 500 MG in DEXTROSE 5%-WATER 100 ML IV SCH (08:27)
[2019-12-10] MEDS: HEPARIN SODIUM,PORCINE 5,000 UNITS/ML VIAL SQ SCH ×2 (08:27→20:27)
[2019-12-10 08:28] LABS: BASOPHILS % (AUTO) 0.4 % (0.0-2.0); EOSINOPHILS % (AUTO) 1.7 % (1.0-6.0); HEMATOCRIT 26.9 % (36-46); HEMOGLOBIN 8.9 g/dL (12.0-16.0); LYMPHOCYTES # (AUTO) 1.2 K/uL (1.0-4.8); LYMPHOCYTES % (AUTO) 17.1 % (22.0-44.0); MEAN CORPUSCULAR HEMOGLOBIN 26.2 pg (26.0-34.0); MEAN CORPUSCULAR VOLUME 80 fL (80-100); MONOCYTES # (AUTO) 1.1 K/uL (0.1-1.0); MONOCYTES % (AUTO) 14.7 % (2.0-9.0); NEUTROPHILS # (AUTO) 4.8 K/uL (1.8-7.7); NEUTROPHILS % (AUTO) 66.1 % (40.0-70.0); PLATELET COUNT (AUTO) 314 K/uL (150-450); RED BLOOD CELL COUNT(AUTO) 3.39 MIL/uL (4.00-5.20); RED CELL DISTRIBUTION WIDTH 14.8 % (11.5-14.5)
[2019-12-10 08:39] LABS: ANION GAP 8 mmol/L (8-16); CALCIUM, TOTAL 8.7 mg/dL (8.8-10.5); CARBON DIOXIDE 22 mmol/L (22-29); CHLORIDE 111 mmol/L (98-107); GLOMERULAR FILTR. RATE CALC > 60 mL/min (>60); GLUCOSE,RANDOM 111 mg/dL (70-110); PHOSPHORUS 2.8 mg/dL (2.5-4.9); SODIUM SERUM 141 mmol/L (136-145); UREA NITROGEN, BLOOD 12 mg/dL (7-18)
[2019-12-10 12:04] VITALS: BP 155/89
[2019-12-10 16:02] VITALS: BP 155/100
[2019-12-10 17:26] LABS: GLUCOMETER DEV NAME(LOC) 5N.2; GLUCOSE,POINT OF CARE 82 MG/DL (70-110)
[2019-12-10 17:26] LABS: GLUCOMETER DEV NAME(LOC) 5N.2; GLUCOSE,POINT OF CARE 136 MG/DL (70-110)
[2019-12-10 19:30] VITALS: BP 158/96
[2019-12-10] MEDS: ACETAMINOPHEN 325 MG TABLET PO PRN (19:49)
[2019-12-10] MEDS: INSULIN GLARGINE,HUM.REC.ANLOG 100 UNITS/ML SQ SCH (20:28)
[2019-12-10] MEDS: INSULIN LISPRO 100 UNITS/ML SQ PRN (20:29)
[2019-12-10 20:52] LABS: GLUCOMETER DEV NAME(LOC) 5S.2A; GLUCOSE,POINT OF CARE 152 MG/DL (70-110)
[2019-12-10 22:18] LABS: GLUCOMETER DEV NAME(LOC) 5N.2; GLUCOSE,POINT OF CARE 105 MG/DL (70-110)
[2019-12-10 23:23] VITALS: BP 144/84
[2019-12-11] VITALS (7 sets, daily range): BP systolic 148–161; BP diastolic 85–106
[2019-12-11] MEDS: CefTRIAXone SODIUM 2 GM in DEXTROSE 5%-WATER 50 ML IV SCH ×2 (05:40→18:36)
[2019-12-11] MEDS: MORPHINE SULFATE 2 MG/ML SYRINGE IVP PRN ×3 (06:13→20:49)
[2019-12-11] MEDS: LevETIRAcetam 1,000 MG in DEXTROSE 5%-WATER 100 ML IV SCH ×2 (06:32→19:39)
[2019-12-11 06:50] LABS: GLUCOMETER DEV NAME(LOC) 5S.2A; GLUCOSE,POINT OF CARE 73 MG/DL (70-110)
[2019-12-11] MEDS: DOCUSATE SODIUM 100 MG CAPSULE PO SCH ×2 (08:11→20:48)
[2019-12-11] MEDS: FAMOTIDINE 20 MG TABLET PO SCH (08:11)
[2019-12-11 08:12] LABS: CALCIUM, TOTAL 8.7 mg/dL (8.8-10.5); CREATININE 1.17 mg/dL (0.60-1.30); POTASSIUM 3.9 mmol/L (3.5-5.1); VANCOMYCIN,RANDOM 9.7 mcg/mL (25.0-50.0)
[2019-12-11] MEDS: HEPARIN SODIUM,PORCINE 5,000 UNITS/ML VIAL SQ SCH ×2 (08:12→20:48)
[2019-12-11] MEDS: VANCOMYCIN HCL 500 MG in DEXTROSE 5%-WATER 100 ML IV SCH (08:28)
[2019-12-11 11:41] LABS: EOSINOPHILS % (AUTO) 1.2 % (1.0-6.0); HEMATOCRIT 27.9 % (36-46); HEMOGLOBIN 9.1 g/dL (12.0-16.0); LYMPHOCYTES # (AUTO) 1.4 K/uL (1.0-4.8); LYMPHOCYTES % (AUTO) 18.6 % (22.0-44.0); MEAN CORPUSCULAR HEMOGLOBIN 25.7 pg (26.0-34.0); MEAN CORPUSCULAR HGB CONC 32.6 G/dL (31.0-37.0); MEAN CORPUSCULAR VOLUME 79 fL (80-100); MONOCYTES # (AUTO) 0.8 K/uL (0.1-1.0); NEUTROPHILS # (AUTO) 5.2 K/uL (1.8-7.7); NEUTROPHILS % (AUTO) 68.2 % (40.0-70.0); PLATELET COUNT (AUTO) 355 K/uL (150-450); RED BLOOD CELL COUNT(AUTO) 3.53 MIL/uL (4.00-5.20); RED CELL DISTRIBUTION WIDTH 14.8 % (11.5-14.5)
[2019-12-11 15:35] LABS: GLUCOMETER DEV NAME(LOC) 5N.2; GLUCOSE,POINT OF CARE 148 MG/DL (70-110)
[2019-12-11] MEDS ORDERED: VANCOMYCIN HCL 500 MG in DEXTROSE 5%-WATER 100 ML IV ONE (17:00)
[2019-12-11] MEDS: INSULIN LISPRO 100 UNITS/ML SQ PRN ×2 (18:01→21:05)
[2019-12-11] MEDS: INSULIN GLARGINE,HUM.REC.ANLOG 100 UNITS/ML SQ SCH (21:04)
[2019-12-11 22:19] LABS: GLUCOMETER DEV NAME(LOC) 5N.2; GLUCOSE,POINT OF CARE 178 MG/DL (70-110)
[2019-12-11 22:29] LABS: GLUCOMETER DEV NAME(LOC) 5S.2A; GLUCOSE,POINT OF CARE 172 MG/DL (70-110)
[2019-12-12] VITALS (11 sets, daily range): BP systolic 129–169; BP diastolic 68–108
[2019-12-12] MEDS: MORPHINE SULFATE 2 MG/ML SYRINGE IVP PRN ×4 (04:21→23:13)
[2019-12-12] MEDS: CefTRIAXone SODIUM 2 GM in DEXTROSE 5%-WATER 50 ML IV SCH ×2 (05:16→17:11)
[2019-12-12 06:23] LABS: BASOPHILS % (AUTO) 0.6 % (0.0-2.0); EOSINOPHILS % (AUTO) 1.9 % (1.0-6.0); HEMATOCRIT 26.3 % (36-46); HEMOGLOBIN 8.6 g/dL (12.0-16.0); LYMPHOCYTES # (AUTO) 1.2 K/uL (1.0-4.8); LYMPHOCYTES % (AUTO) 16.4 % (22.0-44.0); MEAN CORPUSCULAR HEMOGLOBIN 25.7 pg (26.0-34.0); MEAN CORPUSCULAR HGB CONC 32.8 G/dL (31.0-37.0); MEAN CORPUSCULAR VOLUME 78 fL (80-100); MONOCYTES # (AUTO) 0.9 K/uL (0.1-1.0); MONOCYTES % (AUTO) 12.3 % (2.0-9.0); NEUTROPHILS # (AUTO) 5.1 K/uL (1.8-7.7); NEUTROPHILS % (AUTO) 68.8 % (40.0-70.0); PLATELET COUNT (AUTO) 330 K/uL (150-450); RED BLOOD CELL COUNT(AUTO) 3.36 MIL/uL (4.00-5.20)
[2019-12-12 06:41] LABS: % IRON SATURATION 22.9 % (22-44)
[2019-12-12] MEDS: LevETIRAcetam 1,000 MG in DEXTROSE 5%-WATER 100 ML IV SCH ×2 (06:43→19:57)
[2019-12-12] MEDS: INSULIN LISPRO 100 UNITS/ML SQ PRN ×3 (06:46→20:39)
[2019-12-12 07:01] LABS: CALCIUM, TOTAL 8.9 mg/dL (8.8-10.5); CREATININE 1.21 mg/dL (0.60-1.30); POTASSIUM 3.9 mmol/L (3.5-5.1)
[2019-12-12] MEDS: DOCUSATE SODIUM 100 MG CAPSULE PO SCH ×2 (08:39→19:53)
[2019-12-12] MEDS: VANCOMYCIN HCL 750 MG in DEXTROSE 5%-WATER 250 ML IV SCH (08:42)
[2019-12-12] MEDS: HEPARIN SODIUM,PORCINE 5,000 UNITS/ML VIAL SQ SCH ×2 (08:42→19:57)
[2019-12-12] MEDS: FAMOTIDINE 20 MG TABLET PO SCH (08:42)
[2019-12-12] MEDS: HydrALAZINE HCL 20 MG/ML VIAL IVP PRN (12:07)
[2019-12-12] MEDS: SOD FERRIC GLUC COMPLX/SUCROSE 125 MG in SODIUM CHLORIDE 0.9% 100 ML IV SCH (12:33)
[2019-12-12] MEDS: LACTOBAC ACID/BULG/BIFID/THERM TABLET PO SCH (19:57)
[2019-12-12] MEDS: INSULIN GLARGINE,HUM.REC.ANLOG 100 UNITS/ML SQ SCH (20:07)
[2019-12-12 22:03] LABS: GLUCOMETER DEV NAME(LOC) 5N.2; GLUCOSE,POINT OF CARE 174 MG/DL (70-110)
[2019-12-13 00:15] VITALS: BP 137/78
[2019-12-13 04:37] VITALS: BP 149/79
[2019-12-13] MEDS: CefTRIAXone SODIUM 2 GM in DEXTROSE 5%-WATER 50 ML IV SCH (05:27)
[2019-12-13] MEDS: MORPHINE SULFATE 2 MG/ML SYRINGE IVP PRN ×2 (05:28→11:28)
[2019-12-13] MEDS: LevETIRAcetam 1,000 MG in DEXTROSE 5%-WATER 100 ML IV SCH (06:48)
[2019-12-13 07:30] VITALS: BP 152/89
[2019-12-13] MEDS ORDERED: SODIUM CHLORIDE 0.9% 100 ML ONE (07:54)
[2019-12-13] MEDS: VANCOMYCIN HCL 750 MG in DEXTROSE 5%-WATER 250 ML IV SCH (08:03)
[2019-12-13] MEDS: HEPARIN SODIUM,PORCINE 5,000 UNITS/ML VIAL SQ SCH (08:04)
[2019-12-13] MEDS: LACTOBAC ACID/BULG/BIFID/THERM TABLET PO SCH (08:04)
[2019-12-13] MEDS: FAMOTIDINE 20 MG TABLET PO SCH (08:09)
[2019-12-13] MEDS: DOCUSATE SODIUM 100 MG CAPSULE PO SCH (08:09)
[2019-12-13 08:27] LABS: BASOPHILS % (AUTO) 0.6 % (0.0-2.0); EOSINOPHILS % (AUTO) 2.5 % (1.0-6.0); HEMOGLOBIN 8.3 g/dL (12.0-16.0); LYMPHOCYTES # (AUTO) 1.2 K/uL (1.0-4.8); LYMPHOCYTES % (AUTO) 19.2 % (22.0-44.0); MEAN CORPUSCULAR HEMOGLOBIN 26.2 pg (26.0-34.0); MEAN CORPUSCULAR HGB CONC 33.2 G/dL (31.0-37.0); MEAN CORPUSCULAR VOLUME 79 fL (80-100); MONOCYTES # (AUTO) 0.9 K/uL (0.1-1.0); MONOCYTES % (AUTO) 14.4 % (2.0-9.0); NEUTROPHILS # (AUTO) 4.1 K/uL (1.8-7.7); NEUTROPHILS % (AUTO) 63.3 % (40.0-70.0); PLATELET COUNT (AUTO) 344 K/uL (150-450); RED BLOOD CELL COUNT(AUTO) 3.17 MIL/uL (4.00-5.20); RED CELL DISTRIBUTION WIDTH 14.7 % (11.5-14.5)
[2019-12-13 08:42] LABS: CALCIUM, TOTAL 9.2 mg/dL (8.8-10.5); CREATININE 1.26 mg/dL (0.60-1.30); POTASSIUM 4.1 mmol/L (3.5-5.1)
[2019-12-13 11:46] LABS: GLUCOMETER DEV NAME(LOC) 5S.2A; GLUCOSE,POINT OF CARE 151 MG/DL (70-110)
[2019-12-13 11:47] VITALS: BP 164/92
[2019-12-13 11:47] LABS: GLUCOMETER DEV NAME(LOC) 5S.2A; GLUCOSE,POINT OF CARE 121 MG/DL (70-110)
[2019-12-13 11:47] LABS: GLUCOMETER DEV NAME(LOC) 5S.2A; GLUCOSE,POINT OF CARE 160 MG/DL (70-110)
[2019-12-13 11:47] LABS: GLUCOMETER DEV NAME(LOC) 5S.2A; GLUCOSE,POINT OF CARE 190 MG/DL (70-110)
[2019-12-13 11:48] LABS: GLUCOMETER DEV NAME(LOC) 5S.2A; GLUCOSE,POINT OF CARE 72 MG/DL (70-110)
[2019-12-13 11:48] LABS: GLUCOMETER DEV NAME(LOC) 5S.2A; GLUCOSE,POINT OF CARE 64 MG/DL (70-110)
[2019-12-13 11:49] LABS: GLUCOMETER DEV NAME(LOC) 5N.2; GLUCOSE,POINT OF CARE 220 MG/DL (70-110)
[2019-12-13] MEDS: HydrALAZINE HCL 20 MG/ML VIAL IVP PRN (11:53)
[2019-12-13] MEDS: INSULIN LISPRO 100 UNITS/ML SQ PRN (11:54)
[2019-12-13] MEDS: SOD FERRIC GLUC COMPLX/SUCROSE 125 MG in SODIUM CHLORIDE 0.9% 100 ML IV SCH (12:20)
[2019-12-13] MEDS ORDERED: LACT1CAP68 PO (12:27)
[2019-12-13] MEDS ORDERED: ACET-66 PO (12:28)
[2019-12-13] MEDS ORDERED: INSU100V SQ (12:29)
[2019-12-13] MEDS ORDERED: MOM30 PO (12:30)
[2019-12-13] MEDS ORDERED: HYDR25TA84 PO (12:37)
[2019-12-13] MEDS ORDERED: LEVE500T53 PO (12:37)
[2019-12-13] MEDS ORDERED: LOSARTAN POTASSIUM 25 MG TABLET PO SCH (13:00)
== END 2019-12-13 14:25 | DRG 870 ==
LOC: EMS 13:15 → ICU 18:38 → 5S 12-06 20:55
PROVIDERS: ADMIT Internal Medicine; ATTEND Internal Medicine
PROC: 5A1955Z Respiratory Ventilation, Greater than 96 Consecutive Hours (ICD-10-PCS; principal; 2019-12-01)
PROC: 0BH17EZ Insertion of Endotracheal Airway into Trachea, Via Natural or Artificial Opening (ICD-10-PCS; 2019-12-01)
PROC: 05HY33Z Insertion of Infusion Device into Upper Vein, Percutaneous Approach (ICD-10-PCS; 2019-12-08)
DX: A41.9 Sepsis, unspecified organism (principal); G92 Toxic encephalopathy; N17.0 Acute kidney failure with tubular necrosis; J96.00 Acute respiratory failure, unspecified whether with hypoxia or hypercapnia; E43 Unspecified severe protein-calorie malnutrition; F11.20 Opioid dependence, uncomplicated; M62.82 Rhabdomyolysis; E87.0 Hyperosmolality and hypernatremia; I13.0 Hypertensive heart and chronic kidney disease with heart failure and stage 1 through stage 4 chronic kidney disease, or unspecified chronic kidney disease; I50.9 Heart failure, unspecified; E87.6 Hypokalemia; N18.9 Chronic kidney disease, unspecified; E78.5 Hyperlipidemia, unspecified; E11.22 Type 2 diabetes mellitus with diabetic chronic kidney disease; E11.65 Type 2 diabetes mellitus with hyperglycemia; E78.00 Pure hypercholesterolemia, unspecified; G40.901 Epilepsy, unspecified, not intractable, with status epilepticus; N14.1 Nephropathy induced by other drugs, medicaments and biological substances; H53.149 Visual discomfort, unspecified; T50.8X5A Adverse effect of diagnostic agents, initial encounter; D50.9 Iron deficiency anemia, unspecified; W18.39XA Other fall on same level, initial encounter; Z68.25 Body mass index [BMI] 25.0-25.9, adult; Y93.89 Activity, other specified; Z79.4 Long term (current) use of insulin; Z79.899 Other long term (current) drug therapy; Z88.6 Allergy status to analgesic agent; Z88.5 Allergy status to narcotic agent; Z88.8 Allergy status to other drugs, medicaments and biological substances; Z98.49 Cataract extraction status, unspecified eye; Y92.89 Other specified places as the place of occurrence of the external cause; Y99.8 Other external cause status
CPT/HCPCS: 36245; 36569; 36600; 51702; 70450; 70496; 76770; 76856; 76937; 82570; 82728; 82805; 83036; 83540; 83550; 83605; 83735; 84100; 84132; 84145; 84156; 84300; 84443; 84540; 85651; 86850; 86900; 86901; 87040; 87070; 87081; 87086; 87205; 92507; 92526; 92610; 93005; 93306; 94002; 94003; 95816; 97110; 97116; 97163; 97166; 97530; 97535; 99291; G0378; J0131; J0360; J0461; J0696; J0712; J1165; J1644; J1815; J2060; J2270; J2543; J2704; J2916; J3370; J3480; J3490; J7030; J7050; J7060

== ENCOUNTER 2020-01-07 16:44 | Inpatient (IN) | payer MEDICARE, MEDICAID ==
[~2020-01-07] VITALS: Ht 165.1 cm; Wt 67.6 kg
[~2020-01-07 16:44] MED LIST changes: +ACET-66 PO; +HYDR25TA84 PO; +INSU100V SQ; +LACT1CAP68 PO; +LEVE500T53 PO; +MOM30 PO
[2020-01-07] MEDS ORDERED: ACETAMINOPHEN 1000 MG/ISO-OSM 100 ML IV ONE (17:00)
[2020-01-07] MEDS ORDERED: DEXTROSE 50%-WATER 25 GM/50 ML SYRINGE IVP ONE (17:00)
[2020-01-07] MEDS ORDERED: 0.9% SODIUM CHLORIDE 10 ML SYRINGE IVP PRN ×2 (17:00→20:45)
[2020-01-07] MEDS ORDERED: SPIR25 PO (17:16)
[2020-01-07] MEDS ORDERED: PRED5 PO (17:16)
[2020-01-07] MEDS ORDERED: FURO40 PO (17:16)
[2020-01-07 17:39] LABS: BASOPHILS % (AUTO) 0.7 % (0.0-2.0); EOSINOPHILS % (AUTO) 0 % (1.0-6.0); HEMATOCRIT 26.9 % (36-46); HEMOGLOBIN 8.7 g/dL (12.0-16.0); LYMPHOCYTES # (AUTO) 0.5 K/uL (1.0-4.8); LYMPHOCYTES % (AUTO) 5.4 % (22.0-44.0); MEAN CORPUSCULAR HEMOGLOBIN 25.7 pg (26.0-34.0); MEAN CORPUSCULAR HGB CONC 32.2 G/dL (31.0-37.0); MEAN CORPUSCULAR VOLUME 80 fL (80-100); MONOCYTES # (AUTO) 0.4 K/uL (0.1-1.0); MONOCYTES % (AUTO) 4.3 % (2.0-9.0); NEUTROPHILS # (AUTO) 8.6 K/uL (1.8-7.7); PLATELET COUNT (AUTO) 369 K/uL (150-450); RED BLOOD CELL COUNT(AUTO) 3.37 MIL/uL (4.00-5.20); RED CELL DISTRIBUTION WIDTH 17.3 % (11.5-14.5)
[2020-01-07 17:40] LABS: NEUTROPHILS % (AUTO) 89.6 % (40.0-70.0)
[2020-01-07 17:52] LABS: PROTHROMBIN TIME 10.7 SEC (9.4-11.6)
[2020-01-07 17:55] LABS: CALCIUM, TOTAL 9.3 mg/dL (8.8-10.5); CREATININE 1.18 mg/dL (0.60-1.30); LACTIC ACID 1.6 mmol/L (0.4-2.0); POTASSIUM 3.2 mmol/L (3.5-5.1)
[2020-01-07 17:56] LABS: PLATELET MORPHOLOGY COMMENT LARGE PLTS PRESENT
[2020-01-07 18:01] LABS: ALBUMIN 2.2 g/dL (3.4-5.0); BILIRUBIN,TOTAL 0.5 mg/dL (0.1-1.0); TOTAL PROTEIN, SERUM 7.1 g/dL (6.4-8.2)
[2020-01-07 18:16] LABS: INFLUENZA TYPE A NEGATIVE FOR TYPE A (NEGATIVE); INFLUENZA TYPE B NEGATIVE FOR TYPE B (NEGATIVE)
[2020-01-07 18:39] LABS: GLUCOSE,POINT OF CARE 75 MG/DL (70-110)
[2020-01-07] MEDS ORDERED: MIRT-92 PO (18:44)
[2020-01-07] MEDS ORDERED: VANCOMYCIN HCL 1 GM/D5% WATER 200 ML IV ONE (18:45)
[2020-01-07] MEDS ORDERED: LEVOFLOXACIN 750 MG/D5% WATER 150 ML IV ONE (18:45)
[2020-01-07] MEDS ORDERED: POTASSIUM CHLORIDE 10% 40 MEQ/30 ML LIQUID UDCUP PO ONE (18:45)
[2020-01-07] MEDS ORDERED: SODIUM CHLORIDE 0.9% 2,050 ML IV ONE (18:49)
[2020-01-07 19:05] LABS: MAGNESIUM 1.5 mg/dL (1.80-2.40); PHOSPHORUS 3.7 mg/dL (2.5-4.9)
[2020-01-07] MEDS ORDERED: FUROSEMIDE 40 MG/4 ML VIAL IVP ONE (19:30)
[2020-01-07] MEDS ORDERED: SODIUM CHLORIDE 0.9% 100 ML ONE (19:51)
[2020-01-07] MEDS ORDERED: IOVERSOL 350 MG/ML 100 ML VIAL ONE (19:51)
[2020-01-07 19:52] LABS: GLUCOSE,POINT OF CARE 119 MG/DL (70-110)
[2020-01-07] MEDS ORDERED: ACETAMINOPHEN 325 MG TABLET PO PRN ×2 (20:45→21:45)
[2020-01-07 21:05] LABS: APPEARANCE,URINE CLOUDY (CLEAR); BILIRUBIN,URINE NEGATIVE (NEGATIVE); GLUCOSE, URINE (UA) NEGATIVE (NEGATIVE); KETONES,URINE NEGATIVE (NEGATIVE); LEUKOCYTE ESTERASE ,URINE NEGATIVE (NEGATIVE); NITRATE,URINE NEGATIVE (NEGATIVE); OCCULT BLOOD,URINE SMALL (NEGATIVE); PROTEIN,URINE SEE CONFIRM (NEGATIVE); UROBILINOGEN,URINE 0.2 mg/dL (<=1.0)
[2020-01-07 21:14] LABS: AMORPHOUS SEDIMENT,UR Many /LPF (None Seen); BACTERIA,URINE Few /HPF (None Seen); SQUAMOUS EPITHELIAL CELL,UR Moderate /LPF (None Seen); SULFOSALICYLIC ACID,URINE 3+ (Negative)
[2020-01-07 21:16] LABS: YEAST,URINE Few /HPF (None Seen)
[2020-01-07] MEDS ORDERED: *CLINICAL-LEVOFLOXACIN IVPB DOSING CLINICAL ONE (21:45)
[2020-01-07] MEDS ORDERED: BISACODYL 10 MG RECTAL RECTAL SUPPOSITORY PR PRN (21:45)
[2020-01-07] MEDS ORDERED: MAGNESIUM HYDROXIDE SUSPENSION 30 ML UDCUP PO PRN (21:45)
[2020-01-07] MEDS ORDERED: ONDANSETRON HCL 4 MG/2 ML VIAL IVP PRN (21:45)
[2020-01-07] MEDS ORDERED: ZOLPIDEM TARTRATE 5 MG TABLET PO PRN (21:45)
[2020-01-07 23:22] VITALS: BP 134/83
[2020-01-08] VITALS (7 sets, daily range): BP systolic 104–134; BP diastolic 62–84
[2020-01-08] MEDS ORDERED: DEXTROSE 50%-WATER 25 GM/50 ML SYRINGE IVP PRN
[2020-01-08] MEDS ORDERED: MAGNESIUM SULFATE 2 GM/WATER 50 ML IV PRN
[2020-01-08] MEDS ORDERED: MAGNESIUM SULFATE 4 GM/WATER 100 ML IV PRN
[2020-01-08] MEDS: HEPARIN SODIUM,PORCINE 5,000 UNITS/ML VIAL SQ SCH ×4 (00:51→23:55)
[2020-01-08] MEDS: HYDROmorphone 2 MG/ML SYRINGE IVP PRN ×4 (00:52→19:59)
[2020-01-08 01:13] LABS: GLUCOMETER DEV NAME(LOC) 5N.2; GLUCOSE,POINT OF CARE 146 MG/DL (70-110)
[2020-01-08] MEDS: DOCUSATE SODIUM 100 MG CAPSULE PO SCH ×2 (08:25→20:10)
[2020-01-08] MEDS: PANTOPRAZOLE SODIUM 40 MG DR TABLET PO SCH (08:25)
[2020-01-08] MEDS: LevETIRAcetam 500 MG TABLET PO SCH ×2 (08:25→19:58)
[2020-01-08] MEDS: FUROSEMIDE 20 MG/2 ML VIAL IVP SCH (08:26)
[2020-01-08] MEDS: SPIRONOLACTONE 25 MG TABLET PO SCH (08:26)
[2020-01-08 12:15] LABS: BASOPHILS % (AUTO) 0.6 % (0.0-2.0); EOSINOPHILS % (AUTO) 0 % (1.0-6.0); HEMOGLOBIN 8.2 g/dL (12.0-16.0); LYMPHOCYTES % (AUTO) 10.1 % (22.0-44.0); MEAN CORPUSCULAR HGB CONC 32.7 G/dL (31.0-37.0); MEAN CORPUSCULAR VOLUME 80 fL (80-100); MONOCYTES # (AUTO) 0.6 K/uL (0.1-1.0); MONOCYTES % (AUTO) 5.7 % (2.0-9.0); NEUTROPHILS # (AUTO) 8.3 K/uL (1.8-7.7); NEUTROPHILS % (AUTO) 83.6 % (40.0-70.0); PLATELET COUNT (AUTO) 279 K/uL (150-450); RED BLOOD CELL COUNT(AUTO) 3.14 MIL/uL (4.00-5.20); RED CELL DISTRIBUTION WIDTH 17.1 % (11.5-14.5)
[2020-01-08 12:29] LABS: INR 1.2 (0.9-1.1); PROTHROMBIN TIME 12.6 SEC (9.4-11.6)
[2020-01-08 12:38] LABS: ALBUMIN 2.1 g/dL (3.4-5.0); BILIRUBIN,TOTAL 0.6 mg/dL (0.1-1.0); CALCIUM, TOTAL 8.6 mg/dL (8.8-10.5); CREATININE 1.53 mg/dL (0.60-1.30); MAGNESIUM 1.7 mg/dL (1.80-2.40); POTASSIUM 4.1 mmol/L (3.5-5.1); TOTAL PROTEIN, SERUM 6.4 g/dL (6.4-8.2)
[2020-01-08 16:41] LABS: GLUCOMETER DEV NAME(LOC) 5N.1; GLUCOSE,POINT OF CARE 133 MG/DL (70-110)
[2020-01-08 16:52] LABS: GLUCOMETER DEV NAME(LOC) 5N.2; GLUCOSE,POINT OF CARE 118 MG/DL (70-110)
[2020-01-08 16:52] LABS: GLUCOMETER DEV NAME(LOC) 5N.2; GLUCOSE,POINT OF CARE 131 MG/DL (70-110)
[2020-01-08] MEDS ORDERED: CefTRIAXone 1 GM/DEXTROSE 50 ML IV SCH (19:00)
[2020-01-08] MEDS ORDERED: PIPERACILLIN/TAZO 3.375 GM/D5W 50 ML IV ONE (19:15)
[2020-01-08] MEDS ORDERED: VANCOMYCIN HCL 1 GM/D5% WATER 200 ML IV ONE (19:30)
[2020-01-08] MEDS: MAGNESIUM OXIDE 400 MG TABLET PO PRN (19:58)
[2020-01-08] MEDS: DOXYCYCLINE HYCLATE 100 MG in DEXTROSE 5%-WATER 100 ML IV SCH (23:52)
[2020-01-09] MEDS: PIPERACILLIN/TAZO 3.375 GM/D5W 50 ML IV SCH ×2 (02:30→08:06)
[2020-01-09] MEDS: MAGNESIUM OXIDE 400 MG TABLET PO PRN ×2 (02:30→04:32)
[2020-01-09 04:30] VITALS: BP 129/105
[2020-01-09] MEDS: HYDROmorphone 2 MG/ML SYRINGE IVP PRN ×3 (04:34→23:26)
[2020-01-09 06:46] LABS: BASOPHILS % (AUTO) 0.6 % (0.0-2.0); EOSINOPHILS % (AUTO) 0.3 % (1.0-6.0); HEMATOCRIT 24.6 % (36-46); HEMOGLOBIN 8.1 g/dL (12.0-16.0); LYMPHOCYTES # (AUTO) 0.9 K/uL (1.0-4.8); LYMPHOCYTES % (AUTO) 9.8 % (22.0-44.0); MEAN CORPUSCULAR HEMOGLOBIN 25.8 pg (26.0-34.0); MEAN CORPUSCULAR HGB CONC 32.8 G/dL (31.0-37.0); MEAN CORPUSCULAR VOLUME 79 fL (80-100); MONOCYTES # (AUTO) 0.7 K/uL (0.1-1.0); MONOCYTES % (AUTO) 7.6 % (2.0-9.0); NEUTROPHILS # (AUTO) 7.5 K/uL (1.8-7.7); NEUTROPHILS % (AUTO) 81.7 % (40.0-70.0); PLATELET COUNT (AUTO) 335 K/uL (150-450); RED BLOOD CELL COUNT(AUTO) 3.13 MIL/uL (4.00-5.20); RED CELL DISTRIBUTION WIDTH 16.9 % (11.5-14.5)
[2020-01-09 06:58] LABS: CALCIUM, TOTAL 8.8 mg/dL (8.8-10.5); CREATININE 1.63 mg/dL (0.60-1.30); MAGNESIUM 2.1 mg/dL (1.80-2.40); POTASSIUM 4.2 mmol/L (3.5-5.1)
[2020-01-09] MEDS: DOXYCYCLINE HYCLATE 100 MG in DEXTROSE 5%-WATER 100 ML IV SCH ×2 (08:02→20:28)
[2020-01-09] MEDS: VANCOMYCIN HCL 1 GM/D5% WATER 200 ML IV SCH (08:02)
[2020-01-09] MEDS: SPIRONOLACTONE 25 MG TABLET PO SCH (08:05)
[2020-01-09] MEDS: LevETIRAcetam 500 MG TABLET PO SCH ×2 (08:05→20:28)
[2020-01-09] MEDS: PANTOPRAZOLE SODIUM 40 MG DR TABLET PO SCH (08:05)
[2020-01-09] MEDS: HEPARIN SODIUM,PORCINE 5,000 UNITS/ML VIAL SQ SCH ×3 (08:05→23:26)
[2020-01-09] MEDS: DOCUSATE SODIUM 100 MG CAPSULE PO SCH ×2 (08:05→20:28)
[2020-01-09] MEDS: FUROSEMIDE 20 MG/2 ML VIAL IVP SCH (08:05)
[2020-01-09 08:29] VITALS: BP 137/60
[2020-01-09 11:20] VITALS: BP 115/75
[2020-01-09 12:34] LABS: GLUCOMETER DEV NAME(LOC) 5N.1; GLUCOSE,POINT OF CARE 96 MG/DL (70-110)
[2020-01-09 12:34] LABS: GLUCOMETER DEV NAME(LOC) 5N.1; GLUCOSE,POINT OF CARE 101 MG/DL (70-110)
[2020-01-09 13:37] LABS: GLUCOMETER DEV NAME(LOC) 5N.2; GLUCOSE,POINT OF CARE 88 MG/DL (70-110)
[2020-01-09] MEDS: PIPERACILLIN SODIUM/TAZOBACTAM 2.25 GM in DEXTROSE 5%-WATER 50 ML IV SCH ×2 (15:00→22:47)
[2020-01-09 15:01] VITALS: BP 133/84
[2020-01-09] MEDS ORDERED: LEVOFLOXACIN 750 MG/D5% WATER 150 ML IV SCH (20:00)
[2020-01-09 21:17] VITALS: BP 140/76
[2020-01-10 00:09] VITALS: BP 148/88
[2020-01-10] MEDS: PIPERACILLIN SODIUM/TAZOBACTAM 2.25 GM in DEXTROSE 5%-WATER 50 ML IV SCH ×4 (03:53→21:46)
[2020-01-10 04:58] LABS: GLUCOMETER DEV NAME(LOC) 5N.1; GLUCOSE,POINT OF CARE 125 MG/DL (70-110)
[2020-01-10 04:58] LABS: GLUCOMETER DEV NAME(LOC) 5N.2; GLUCOSE,POINT OF CARE 112 MG/DL (70-110)
[2020-01-10 04:58] LABS: GLUCOMETER DEV NAME(LOC) 5N.2; GLUCOSE,POINT OF CARE 122 MG/DL (70-110)
[2020-01-10 05:57] VITALS: BP 145/87
[2020-01-10 07:24] LABS: BASOPHILS % (AUTO) 0.8 % (0.0-2.0); EOSINOPHILS % (AUTO) 0.5 % (1.0-6.0); HEMATOCRIT 24.1 % (36-46); LYMPHOCYTES # (AUTO) 0.9 K/uL (1.0-4.8); LYMPHOCYTES % (AUTO) 11.9 % (22.0-44.0); MEAN CORPUSCULAR HEMOGLOBIN 25.9 pg (26.0-34.0); MEAN CORPUSCULAR HGB CONC 33.2 G/dL (31.0-37.0); MEAN CORPUSCULAR VOLUME 78 fL (80-100); MONOCYTES # (AUTO) 0.6 K/uL (0.1-1.0); MONOCYTES % (AUTO) 7.3 % (2.0-9.0); NEUTROPHILS # (AUTO) 6.2 K/uL (1.8-7.7); NEUTROPHILS % (AUTO) 79.5 % (40.0-70.0); PLATELET COUNT (AUTO) 323 K/uL (150-450); RED BLOOD CELL COUNT(AUTO) 3.09 MIL/uL (4.00-5.20); RED CELL DISTRIBUTION WIDTH 16.5 % (11.5-14.5)
[2020-01-10 07:45] LABS: CALCIUM, TOTAL 9.5 mg/dL (8.8-10.5); CREATININE 1.75 mg/dL (0.60-1.30); POTASSIUM 4.1 mmol/L (3.5-5.1)
[2020-01-10 08:04] VITALS: BP 152/90
[2020-01-10] MEDS: PANTOPRAZOLE SODIUM 40 MG DR TABLET PO SCH (08:36)
[2020-01-10] MEDS: HEPARIN SODIUM,PORCINE 5,000 UNITS/ML VIAL SQ SCH ×2 (08:36→16:00)
[2020-01-10] MEDS: LevETIRAcetam 500 MG TABLET PO SCH ×2 (08:36→20:53)
[2020-01-10] MEDS: FUROSEMIDE 20 MG/2 ML VIAL IVP SCH (08:37)
[2020-01-10] MEDS: HYDROmorphone 2 MG/ML SYRINGE IVP PRN ×4 (08:38→22:30)
[2020-01-10] MEDS: DOCUSATE SODIUM 100 MG CAPSULE PO SCH ×2 (09:00→20:54)
[2020-01-10] MEDS: DOXYCYCLINE HYCLATE 100 MG in DEXTROSE 5%-WATER 100 ML IV SCH ×2 (09:55→20:52)
[2020-01-10] MEDS: VANCOMYCIN HCL 1 GM/D5% WATER 200 ML IV SCH (11:09)
[2020-01-10 12:00] VITALS: BP 142/88
[2020-01-10] MEDS: SPIRONOLACTONE 25 MG TABLET PO SCH (15:16)
[2020-01-10 16:23] VITALS: BP 138/88
[2020-01-10 17:25] LABS: GLUCOMETER DEV NAME(LOC) 5N.2; GLUCOSE,POINT OF CARE 126 MG/DL (70-110)
[2020-01-10 17:25] LABS: GLUCOMETER DEV NAME(LOC) 5N.2; GLUCOSE,POINT OF CARE 117 MG/DL (70-110)
[2020-01-10 18:27] LABS: GLUCOMETER DEV NAME(LOC) 5S.2A; GLUCOSE,POINT OF CARE 145 MG/DL (70-110)
[2020-01-10 21:16] VITALS: BP 137/93
[2020-01-10] MEDS: INSULIN LISPRO 100 UNITS/ML SQ PRN (22:31)
[2020-01-11] MEDS: HEPARIN SODIUM,PORCINE 5,000 UNITS/ML VIAL SQ SCH ×3 (00:16→15:06)
[2020-01-11 01:18] VITALS: BP 139/88
[2020-01-11] MEDS: PIPERACILLIN SODIUM/TAZOBACTAM 2.25 GM in DEXTROSE 5%-WATER 50 ML IV SCH ×4 (03:44→21:02)
[2020-01-11 04:54] VITALS: BP 151/89
[2020-01-11 08:03] VITALS: BP 153/86
[2020-01-11 08:20] LABS: HEMATOCRIT 23.6 % (36-46); HEMOGLOBIN 7.7 g/dL (12.0-16.0); MEAN CORPUSCULAR HEMOGLOBIN 25.4 pg (26.0-34.0); MEAN CORPUSCULAR HGB CONC 32.5 G/dL (31.0-37.0); MEAN CORPUSCULAR VOLUME 78 fL (80-100); RED BLOOD CELL COUNT(AUTO) 3.03 MIL/uL (4.00-5.20); RED CELL DISTRIBUTION WIDTH 16.4 % (11.5-14.5)
[2020-01-11 08:21] LABS: PLATELET COUNT (AUTO) 288 K/uL (150-450)
[2020-01-11] MEDS: HYDROmorphone 2 MG/ML SYRINGE IVP PRN ×2 (08:36→17:39)
[2020-01-11] MEDS: PANTOPRAZOLE SODIUM 40 MG DR TABLET PO SCH (08:37)
[2020-01-11] MEDS: LevETIRAcetam 500 MG TABLET PO SCH ×2 (08:37→20:59)
[2020-01-11] MEDS: FUROSEMIDE 20 MG/2 ML VIAL IVP SCH (08:37)
[2020-01-11] MEDS: SPIRONOLACTONE 25 MG TABLET PO SCH (08:37)
[2020-01-11] MEDS: DOXYCYCLINE HYCLATE 100 MG in DEXTROSE 5%-WATER 100 ML IV SCH ×2 (08:38→20:59)
[2020-01-11] MEDS: DOCUSATE SODIUM 100 MG CAPSULE PO SCH ×2 (08:38→20:56)
[2020-01-11 09:03] LABS: ALBUMIN 1.7 g/dL (3.4-5.0); BILIRUBIN,TOTAL 0.5 mg/dL (0.1-1.0); CALCIUM, TOTAL 9.1 mg/dL (8.8-10.5); CREATININE 1.49 mg/dL (0.60-1.30); POTASSIUM 3.4 mmol/L (3.5-5.1); TOTAL PROTEIN, SERUM 6.5 g/dL (6.4-8.2); VANCOMYCIN,RANDOM 23.2 mcg/mL (25.0-50.0)
[2020-01-11 09:27] LABS: GLUCOMETER DEV NAME(LOC) 5S.1; GLUCOSE,POINT OF CARE 89 MG/DL (70-110)
[2020-01-11 09:27] LABS: GLUCOMETER DEV NAME(LOC) 5S.1; GLUCOSE,POINT OF CARE 146 MG/DL (70-110)
[2020-01-11 09:37] LABS: BAND NEUTROPHILS % (MANUAL) 1 % (0-5); EOSINOPHILS % (MANUAL) 2 % (1-6); LYMPHOCYTES % (MANUAL) 30 % (22-44); MONOCYTES % (MANUAL) 8 % (2-9); SEGMENTED NEUTROPHILS % 59 % (40-70)
[2020-01-11] MEDS: VANCOMYCIN HCL 1 GM/D5% WATER 200 ML IV SCH (09:55)
[2020-01-11 11:06] VITALS: BP 137/76
[2020-01-11] MEDS ORDERED: POTASSIUM CHLORIDE 20 MEQ ER TABLET PO ONE (12:00)
[2020-01-11 16:06] VITALS: BP 145/82
[2020-01-11 19:54] VITALS: BP 148/89
[2020-01-11 20:14] LABS: GLUCOMETER DEV NAME(LOC) 5S.1; GLUCOSE,POINT OF CARE 143 MG/DL (70-110)
[2020-01-11] MEDS: INSULIN LISPRO 100 UNITS/ML SQ PRN (21:01)
[2020-01-11 22:18] LABS: GLUCOMETER DEV NAME(LOC) 5S.2A; GLUCOSE,POINT OF CARE 146 MG/DL (70-110)
[2020-01-12 00:02] VITALS: BP 140/82
[2020-01-12] MEDS: HEPARIN SODIUM,PORCINE 5,000 UNITS/ML VIAL SQ SCH ×4 (00:13→23:49)
[2020-01-12] MEDS: GuaiFENesin/D-METHORPHAN [SUGAR-FREE] 200-20MG/10 ML SYRUP UDCUP PO PRN ×2 (00:14→09:39)
[2020-01-12 03:21] LABS: GLUCOMETER DEV NAME(LOC) 5N.1; GLUCOSE,POINT OF CARE 165 MG/DL (70-110)
[2020-01-12] MEDS: PIPERACILLIN SODIUM/TAZOBACTAM 2.25 GM in DEXTROSE 5%-WATER 50 ML IV SCH ×4 (03:51→20:47)
[2020-01-12 03:59] VITALS: BP 153/95
[2020-01-12] MEDS: HYDROmorphone 2 MG/ML SYRINGE IVP PRN ×3 (04:01→21:52)
[2020-01-12 08:00] VITALS: BP 146/82
[2020-01-12 08:35] LABS: CALCIUM, TOTAL 9.3 mg/dL (8.8-10.5); CREATININE 1.39 mg/dL (0.60-1.30); POTASSIUM 3.7 mmol/L (3.5-5.1)
[2020-01-12] MEDS: DOCUSATE SODIUM 100 MG CAPSULE PO SCH ×2 (09:22→20:47)
[2020-01-12] MEDS: SPIRONOLACTONE 25 MG TABLET PO SCH (09:22)
[2020-01-12] MEDS: LevETIRAcetam 500 MG TABLET PO SCH ×2 (09:23→20:47)
[2020-01-12] MEDS: VANCOMYCIN HCL 1 GM/D5% WATER 200 ML IV SCH (09:24)
[2020-01-12] MEDS: FUROSEMIDE 20 MG/2 ML VIAL IVP SCH (09:24)
[2020-01-12] MEDS: PANTOPRAZOLE SODIUM 40 MG DR TABLET PO SCH (09:26)
[2020-01-12 12:00] VITALS: BP 147/86
[2020-01-12] MEDS: DOXYCYCLINE HYCLATE 100 MG in DEXTROSE 5%-WATER 100 ML IV SCH ×2 (12:05→23:49)
[2020-01-12 12:20] LABS: GLUCOMETER DEV NAME(LOC) 5S.1; GLUCOSE,POINT OF CARE 97 MG/DL (70-110)
[2020-01-12] MEDS: INSULIN LISPRO 100 UNITS/ML SQ PRN ×2 (12:25→21:55)
[2020-01-12 13:13] LABS: GLUCOMETER DEV NAME(LOC) 5N.1; GLUCOSE,POINT OF CARE 154 MG/DL (70-110)
[2020-01-12 13:40] LABS: ORGANISM ID Not indicated.; S PNEUMO SOURCE Urine; STREP PNEUMONIAE AG URINE Negative (Negative); STREP.PNEUMO BODY FLUID CULT. Not indicated.
[2020-01-12 16:24] VITALS: BP 137/79
[2020-01-12 17:44] LABS: GLUCOMETER DEV NAME(LOC) 5N.1; GLUCOSE,POINT OF CARE 117 MG/DL (70-110)
[2020-01-12 18:00] LABS: LEGIONELLA PNEUMO AG URINE Negative (Negative)
[2020-01-12 22:24] VITALS: BP 150/91
[2020-01-12 23:27] LABS: GLUCOMETER DEV NAME(LOC) 5S.1; GLUCOSE,POINT OF CARE 149 MG/DL (70-110)
[2020-01-13 00:48] VITALS: BP 132/74
[2020-01-13] MEDS: PIPERACILLIN SODIUM/TAZOBACTAM 2.25 GM in DEXTROSE 5%-WATER 50 ML IV SCH (03:12)
[2020-01-13 05:41] VITALS: BP 141/83
[2020-01-13] MEDS: HYDROmorphone 2 MG/ML SYRINGE IVP PRN ×2 (06:40→14:20)
[2020-01-13 07:07] LABS: CALCIUM, TOTAL 8.7 mg/dL (8.8-10.5); CREATININE 1.17 mg/dL (0.60-1.30); POTASSIUM 3.3 mmol/L (3.5-5.1)
[2020-01-13 07:55] VITALS: BP 143/80
[2020-01-13 07:56] LABS: GLUCOMETER DEV NAME(LOC) 5S.1; GLUCOSE,POINT OF CARE 120 MG/DL (70-110)
[2020-01-13] MEDS: DOCUSATE SODIUM 100 MG CAPSULE PO SCH (09:00)
[2020-01-13] MEDS ORDERED: PIPERACILLIN/TAZO 3.375 GM/D5W 50 ML IV SCH (09:00)
[2020-01-13] MEDS: SPIRONOLACTONE 25 MG TABLET PO SCH (09:36)
[2020-01-13] MEDS: LevETIRAcetam 500 MG TABLET PO SCH (09:36)
[2020-01-13] MEDS: HEPARIN SODIUM,PORCINE 5,000 UNITS/ML VIAL SQ SCH (09:36)
[2020-01-13] MEDS: PANTOPRAZOLE SODIUM 40 MG DR TABLET PO SCH (09:37)
[2020-01-13] MEDS: DOXYCYCLINE HYCLATE 100 MG in DEXTROSE 5%-WATER 100 ML IV SCH (09:38)
[2020-01-13] MEDS: VANCOMYCIN HCL 1 GM/D5% WATER 200 ML IV SCH (09:38)
[2020-01-13] MEDS: FUROSEMIDE 20 MG/2 ML VIAL IVP SCH (09:39)
[2020-01-13] MEDS: INSULIN LISPRO 100 UNITS/ML SQ PRN (12:01)
[2020-01-13 12:40] LABS: BASOPHILS % (AUTO) 1.6 % (0.0-2.0); EOSINOPHILS % (AUTO) 3.4 % (1.0-6.0); HEMATOCRIT 24.4 % (36-46); HEMOGLOBIN 7.8 g/dL (12.0-16.0); LYMPHOCYTES # (AUTO) 1.2 K/uL (1.0-4.8); LYMPHOCYTES % (AUTO) 26.8 % (22.0-44.0); MEAN CORPUSCULAR HEMOGLOBIN 24.8 pg (26.0-34.0); MEAN CORPUSCULAR HGB CONC 31.9 G/dL (31.0-37.0); MEAN CORPUSCULAR VOLUME 78 fL (80-100); MONOCYTES # (AUTO) 0.8 K/uL (0.1-1.0); MONOCYTES % (AUTO) 18.7 % (2.0-9.0); NEUTROPHILS # (AUTO) 2.2 K/uL (1.8-7.7); NEUTROPHILS % (AUTO) 49.5 % (40.0-70.0); PLATELET COUNT (AUTO) 289 K/uL (150-450); RED BLOOD CELL COUNT(AUTO) 3.14 MIL/uL (4.00-5.20)
[2020-01-13 12:52] VITALS: BP 134/78
[2020-01-13 12:54] LABS: ALBUMIN 1.7 g/dL (3.4-5.0); BILIRUBIN,TOTAL 0.4 mg/dL (0.1-1.0); TOTAL PROTEIN, SERUM 6.4 g/dL (6.4-8.2)
[2020-01-13 14:59] LABS: GLUCOMETER DEV NAME(LOC) 5N.1; GLUCOSE,POINT OF CARE 164 MG/DL (70-110)
[2020-01-13] MEDS ORDERED: CefTRIAXone 1 GM/DEXTROSE 50 ML IV SCH (15:00)
[2020-01-13] MEDS ORDERED: MetroNIDAZOLE 500 MG TABLET PO SCH (16:00)
== END 2020-01-13 15:33 | DRG 871 ==
LOC: EMS 16:46 → 5S 21:07 → 5N 01-10 20:00
PROVIDERS: ADMIT Internal Medicine; ATTEND Internal Medicine
DX: A41.9 Sepsis, unspecified organism (principal); J18.9 Pneumonia, unspecified organism; I50.31 Acute diastolic (congestive) heart failure; J96.00 Acute respiratory failure, unspecified whether with hypoxia or hypercapnia; N17.9 Acute kidney failure, unspecified; I13.0 Hypertensive heart and chronic kidney disease with heart failure and stage 1 through stage 4 chronic kidney disease, or unspecified chronic kidney disease; E87.6 Hypokalemia; G40.909 Epilepsy, unspecified, not intractable, without status epilepticus; E11.8 Type 2 diabetes mellitus with unspecified complications; Z79.4 Long term (current) use of insulin; N18.9 Chronic kidney disease, unspecified; D64.9 Anemia, unspecified; E78.00 Pure hypercholesterolemia, unspecified; E11.22 Type 2 diabetes mellitus with diabetic chronic kidney disease
CPT/HCPCS: 71260; 83605; 83735; 84100; 84145; 87040; 87070; 87081; 87205; 87449; 87635; 87804; 87899; 93005; 99291; J0131; J0696; J1170; J1644; J1940; J1956; J2543; J3370; J3475; J3490; J7030; J7050; J7060

== ENCOUNTER 2023-12-28 18:54 | Inpatient (IN) | payer MEDICARE, MEDICAID ==
[~2023-12-28] VITALS: Ht 162.6 cm; Wt 55.0 kg
[~2023-12-28 18:54] MED LIST changes: +ACET-3385 PO; -ACET-66 PO; -CEPH500 PO; -CYCL10 PO; -ESCI20TA PO; +FURO40 PO; -HYDR-3965 PO; -HYDR12.530 PO; -HYDR4TAB56 PO; +LEVE500T20 PO; -LEVE500T53 PO; -LISI-662 PO; -LORA-999 PO; +MAGN-169 PO; -METO5TAB95 PO; +MIRT-89 PO; -MIRT15TA6 PO; -MOM30 PO; -OXCA300T29 PO; +SERT-158 PO; +SPIR-37 PO; -TRAM50TA4 PO
[2023-12-28 22:46] LABS: BASOPHILS % (AUTO) 0.8 % (0.0-2.0); EOSINOPHILS % (AUTO) 0.7 % (1.0-6.0); HEMATOCRIT 32.3 % (36-46); HEMOGLOBIN 10.4 g/dL (12.0-16.0); LYMPHOCYTES # (AUTO) 1.4 K/uL (1.0-4.8); LYMPHOCYTES % (AUTO) 11.1 % (22.0-44.0); MEAN CORPUSCULAR HGB CONC 32.2 G/dL (31.0-37.0); MEAN CORPUSCULAR VOLUME 84 fL (80-100); MONOCYTES # (AUTO) 0.8 K/uL (0.1-1.0); MONOCYTES % (AUTO) 6.3 % (2.0-9.0); NEUTROPHILS # (AUTO) 10.3 K/uL (1.8-7.7); NEUTROPHILS % (AUTO) 81.1 % (40.0-70.0); PLATELET COUNT (AUTO) 125 K/uL (150-450); RED BLOOD CELL COUNT(AUTO) 3.86 MIL/uL (4.00-5.20); RED CELL DISTRIBUTION WIDTH 15.7 % (11.5-14.5); WHITE BLOOD COUNT (AUTO) 12.7 K/uL (4.5-11.0)
[2023-12-28] MEDS: HYDROmorphone HCL 2 MG/ML SYRINGE IVP ONE (22:48)
[2023-12-28] MEDS: ONDANSETRON HCL 4 MG/2 ML VIAL IVP ONE (22:48)
[2023-12-28 22:52] LABS: CALCIUM, TOTAL 10.3 mg/dL (8.8-10.5); CREATININE 4.63 mg/dL (0.60-1.30); POTASSIUM 4.8 mmol/L (3.5-5.1)
[2023-12-28 22:56] LABS: INR 1.1 (0.9-1.1); PROTHROMBIN TIME 11.2 SEC (9.4-11.6)
[2023-12-28 22:58] LABS: BILIRUBIN,TOTAL 0.6 mg/dL (0.1-1.0); TOTAL PROTEIN, SERUM 8.7 g/dL (6.4-8.2)
[2023-12-28 23:12] LABS: TROPONIN I-HIGH SENSITIVITY 49 ng/L (<51)
[2023-12-28] MEDS ORDERED: INSULIN LISPRO 100 UNITS/ML SQ PRN (23:30)
[2023-12-28] MEDS ORDERED: ZOLPIDEM TARTRATE 5 MG TABLET PO PRN (23:30)
[2023-12-28] MEDS ORDERED: OxyCODONE HCL/ACETAMINOPHEN 5-325 MG TABLET PO PRN ×3 (23:30)
[2023-12-28] MEDS ORDERED: ONDANSETRON HCL 4 MG/2 ML VIAL IVP PRN (23:30)
[2023-12-28] MEDS ORDERED: DEXTROSE 50%-WATER 25 GM/50 ML SYRINGE IVP PRN (23:30)
[2023-12-29] VITALS (14 sets, daily range): BP systolic 117–167; BP diastolic 62–86; PULSE 65–91; RESP 18–20; TEMP 97.7–98.7
[2023-12-29] MEDS: MORPHINE SULFATE 4 MG/ML SYRINGE IVP ONE (00:12)
[2023-12-29 01:17] LABS: COVID AG,FIA SOURCE NASAL SWAB
[2023-12-29 01:37] LABS: SARS-COV2 (COVID) ANTIGEN,FIA Negative (Negative)
[2023-12-29 06:55] LABS: GLUCOMETER DEV NAME(LOC) 6N.2B; GLUCOSE,POINT OF CARE 55 MG/DL (70-110)
[2023-12-29] MEDS: DOCUSATE SODIUM 100 MG CAPSULE PO SCH (08:42)
[2023-12-29] MEDS: LevETIRAcetam 500 MG TABLET PO SCH (08:42)
[2023-12-29] MEDS: ACETAMINOPHEN 325 MG TABLET PO PRN (08:42)
[2023-12-29] MEDS: FAMOTIDINE 20 MG TABLET PO SCH (08:42)
[2023-12-29] MEDS: AmLODIPine BESYLATE 10 MG TABLET PO SCH (08:42)
[2023-12-29] MEDS ORDERED: AMOXICILLIN TRIHYDRATE 250 MG CAPSULE PO SCH (09:00)
[2023-12-29 10:13] LABS: BASOPHILS % (AUTO) 0.2 % (0.0-2.0); EOSINOPHILS % (AUTO) 0.9 % (1.0-6.0); HEMATOCRIT 30.2 % (36-46); LYMPHOCYTES # (AUTO) 1.6 K/uL (1.0-4.8); LYMPHOCYTES % (AUTO) 19.5 % (22.0-44.0); MEAN CORPUSCULAR HEMOGLOBIN 27.6 pg (26.0-34.0); MEAN CORPUSCULAR HGB CONC 32.9 G/dL (31.0-37.0); MEAN CORPUSCULAR VOLUME 84 fL (80-100); MONOCYTES # (AUTO) 0.9 K/uL (0.1-1.0); MONOCYTES % (AUTO) 10.6 % (2.0-9.0); NEUTROPHILS # (AUTO) 5.8 K/uL (1.8-7.7); NEUTROPHILS % (AUTO) 68.8 % (40.0-70.0); PLATELET COUNT (AUTO) 108 K/uL (150-450); RED CELL DISTRIBUTION WIDTH 15.9 % (11.5-14.5); WHITE BLOOD COUNT (AUTO) 8.4 K/uL (4.5-11.0)
[2023-12-29 10:32] LABS: CALCIUM, TOTAL 9.6 mg/dL (8.8-10.5); CREATININE 4.85 mg/dL (0.60-1.30); POTASSIUM 4.5 mmol/L (3.5-5.1)
[2023-12-29] MEDS ORDERED: HYDROmorphone HCL 2 MG/ML SYRINGE IVP PRN (11:15)
[2023-12-29] MEDS: FOLIC ACID/VIT B COMPLEX AND C TABLET PO SCH (11:45)
[2023-12-29] MEDS: SEVELAMER CARBONATE 800 MG TABLET PO SCH (12:00)
[2023-12-29] MEDS ORDERED: APIX2.5T PO (13:37)
[2023-12-29] MEDS ORDERED: FOLI-130 PO (13:37)
[2023-12-29] MEDS ORDERED: LEVO88TA7 PO (13:37)
[2023-12-29] MEDS ORDERED: CALC0.5C11 PO (13:37)
[2023-12-29] MEDS ORDERED: BUME2TAB5 PO (13:37)
[2023-12-29] MEDS ORDERED: LEVE250T4 PO (13:37)
[2023-12-29] MEDS ORDERED: BUSP10TA23 PO (13:37)
[2023-12-29] MEDS ORDERED: MIRT-93 PO (13:37)
[2023-12-29] MEDS ORDERED: SUCR500T PO (13:37)
[2023-12-29] MEDS ORDERED: SODIUM CHLORIDE 0.9% 500 ML IV ONE (15:23)
[2023-12-29] MEDS: AMPICILLIN SODIUM 500 MG in SODIUM CHLORIDE 0.9% 50 ML IV SCH (15:33)
[2023-12-29] MEDS ORDERED: SODIUM CHLORIDE 0.9% 1,000 ML ONE (16:35)
[2023-12-29] MEDS: HYDROmorphone HCL 2 MG/ML SYRINGE IVP PRN (17:42)
[2023-12-30 04:42] VITALS: BP 151/70; PULSE 81; RESP 20; TEMP 97.8
[2023-12-30 04:46] LABS: GLUCOMETER DEV NAME(LOC) 4E.2; GLUCOSE,POINT OF CARE 65 MG/DL (70-110)
[2023-12-30 04:46] LABS: GLUCOMETER DEV NAME(LOC) 4E.2; GLUCOSE,POINT OF CARE 143 MG/DL (70-110)
[2023-12-30 06:56] LABS: GLUCOMETER DEV NAME(LOC) 6N.2B; GLUCOSE,POINT OF CARE 85 MG/DL (70-110)
[2023-12-30 08:11] VITALS: BP 153/78; PULSE 82; RESP 18; TEMP 98.1
[2023-12-30] MEDS ORDERED: AMOX250C4 PO (09:35)
[2023-12-30 12:45] LABS: GLUCOMETER DEV NAME(LOC) 6N.2B; GLUCOSE,POINT OF CARE 98 MG/DL (70-110)
[2023-12-31] MEDS ORDERED: EPOETIN ALFA 10,000 UNITS/ML 2 ML VIAL SQ SCH (09:00)
== END 2023-12-30 16:10 | DRG 157 ==
LOC: EMS 18:54 → 6S 12-29 01:25
PROVIDERS: ADMIT Internal Medicine; ATTEND Internal Medicine
PROC: 5A1D70Z Performance of Urinary Filtration, Intermittent, Less than 6 Hours Per Day (ICD-10-PCS; principal; 2023-12-29)
DX: K13.79 Other lesions of oral mucosa (principal); N18.6 End stage renal disease; I12.0 Hypertensive chronic kidney disease with stage 5 chronic kidney disease or end stage renal disease; I42.9 Cardiomyopathy, unspecified; K06.8 Other specified disorders of gingiva and edentulous alveolar ridge; K05.10 Chronic gingivitis, plaque induced; E11.22 Type 2 diabetes mellitus with diabetic chronic kidney disease; I49.5 Sick sinus syndrome; G89.29 Other chronic pain; E78.00 Pure hypercholesterolemia, unspecified; Z20.822 Contact with and (suspected) exposure to COVID-19; E11.51 Type 2 diabetes mellitus with diabetic peripheral angiopathy without gangrene; D63.1 Anemia in chronic kidney disease; E83.39 Other disorders of phosphorus metabolism; F32.A Depression, unspecified; F41.9 Anxiety disorder, unspecified; I48.0 Paroxysmal atrial fibrillation; J44.9 Chronic obstructive pulmonary disease, unspecified; R62.7 Adult failure to thrive; Z86.16 Personal history of COVID-19; Z99.2 Dependence on renal dialysis; Z88.6 Allergy status to analgesic agent; Z88.5 Allergy status to narcotic agent; Z79.4 Long term (current) use of insulin; Z79.899 Other long term (current) drug therapy; Z68.20 Body mass index [BMI] 20.0-20.9, adult; Z83.3 Family history of diabetes mellitus
CPT/HCPCS: 80048; 80053; 82962; 84484; 85025; 85610; 87340; 90935; 99285; J0290; J1170; J2270; J2405; J7030; J7040; J7050

== ENCOUNTER 2025-10-24 01:56 | Emergency (ER) | payer MEDICARE, MEDICAID ==
[~2025-10-24] VITALS: Ht 162.6 cm; Wt 52.3 kg
[~2025-10-24 01:56] MED LIST changes: +AMOX250C4 PO; +BUSP10TA23 PO; +CALC0.5C11 PO; -FURO40 PO; -HYDR25TA84 PO; -INSLAN SQ; -INSU100V SQ; -LACT1CAP68 PO; +LEVE250T81 PO; -LEVE500T20 PO; +LEVO88TA7 PO; -MAGN-169 PO; -MIRT-89 PO; -SERT-158 PO; -SPIR-37 PO
[2025-10-24] MEDS ORDERED: HYDR-4062 PO (02:44)
[2025-10-24 02:51] LABS: GLUCOMETER DEV NAME(LOC) ER.7; GLUCOSE,POINT OF CARE 46 MG/DL (70-110)
[2025-10-24 03:51] LABS: GLUCOMETER DEV NAME(LOC) ER.7; GLUCOSE,POINT OF CARE 108 MG/DL (70-110)
[2025-10-24 04:31] LABS: GLUCOMETER DEV NAME(LOC) ER.7; GLUCOSE,POINT OF CARE 146 MG/DL (70-110)
[2025-10-24 08:55] VITALS: BP 158/88; PULSE 74; RESP 17; O2SAT 99
== END 2025-10-24 09:14 | disposition home or self-care (01) ==
LOC: EMS 01:56
DX: E11.40 Type 2 diabetes mellitus with diabetic neuropathy, unspecified (principal); E11.649 Type 2 diabetes mellitus with hypoglycemia without coma; J44.9 Chronic obstructive pulmonary disease, unspecified; F32.A Depression, unspecified; E78.00 Pure hypercholesterolemia, unspecified; I51.9 Heart disease, unspecified; Z59.71 Insufficient health insurance coverage; Z79.899 Other long term (current) drug therapy; Z88.5 Allergy status to narcotic agent; Z88.6 Allergy status to analgesic agent; Z99.2 Dependence on renal dialysis
CPT/HCPCS: 99283; 82962; 96372; J1171